=== PATIENT | female | born 1955 | race Caucasian/White ===

== ENCOUNTER → 2017-09-17 12:54 | Outpatient (CLI) | payer MEDICARE, OTHER, SELFPAY ==
--- NOTE | 2017-09-17 13:03 | MR_ITS ---
MR lower leg RT wo con HISTORY: Right calf pain. Popping noise from the right calf with pain ITS.REASON: STRAINED MUSCLE ORDERING PHYSICIAN: Hua Romero PATIENT AGE: 62 years Comparison: None TECHNIQUE: Standard multiplanar multiecho sequences are performed without contrast. FINDINGS: There is no evidence of abnormal signal intensity within the muscles of the right calf that would indicate a muscle tear or strain. No evidence of hematoma. Unremarkable bone marrow signal intensity. No evidence of fracture. Incidental note is made of bilateral knee joint effusions and a left-sided Hoff's cyst measuring approximately 3.5 cm. IMPRESSION: 1. No evidence of muscle tear, strain, or hematoma 2. Bilateral knee joint effusions with left-sided Hoff cyst
== END ==
PROVIDERS: Family Provider Family Medicine; PCP Nurse Practitioner Family; Visit Provider Orthopaedic Surgery Adult Reconstructive Orthopaedic Surgery
DX: S86.111A Strain of other muscle(s) and tendon(s) of posterior muscle group at lower leg level, right leg, initial encounter (principal)
CPT/HCPCS: 73718

== ENCOUNTER 2017-10-14 10:00 | Outpatient (RCR) | payer MEDICARE, OTHER, SELFPAY | END 2017-10-27 13:31 | disposition home or self-care (01) | LOC: PT 10:00 | PROVIDERS: Family Provider Family Medicine; PCP Nurse Practitioner Family; Visit Provider Orthopaedic Surgery Adult Reconstructive Orthopaedic Surgery | DX: M17.0 Bilateral primary osteoarthritis of knee (principal) | CPT/HCPCS: 97110; 97163 ==

== ENCOUNTER → 2020-05-05 15:58 | Outpatient (CLI) | payer MEDICARE, OTHER, SELFPAY | PROVIDERS: PCP Family Medicine; Visit Provider Family Medicine | DX: Z20.822 Contact with and (suspected) exposure to COVID-19 (principal); U07.1 COVID-19 | CPT/HCPCS: U0003 ==

== ENCOUNTER → 2021-06-17 15:07 | Outpatient (CLI) | payer MEDICARE, OTHER, SELFPAY ==
--- NOTE | 2021-06-17 15:07 | MM_ITS ---
PROCEDURE INFORMATION: Exam: MG Bilateral Screening 3D Mammography Exam date and time: 06/17/2021 3:07 PM Age: 66 years old Clinical indication: Encounter for screening mammogram for malignant neoplasm of breast TECHNIQUE: Imaging protocol: Bilateral Screening tomosynthesis and 2D mammography including computer-aided detection (CAD) when performed. COMPARISON: MG DMSB DIG MAMM-SCREEN FARZANEH W/CAD 11/28/2016 9:19 AM FINDINGS: MAMMOGRAPHY: Breast composition: The breast tissue is composed of scattered areas of fibroglandular density. Mass: None. Architectural distortion: None. Calcifications: No suspicious calcifications. Asymmetric density: None. Skin thickening: None. Axillary adenopathy: None. IMPRESSION: No mammographic evidence of malignancy. Annual screening is recommended unless otherwise clinically indicated. ASSESSMENT: BI-RADS Category 1: Negative
== END ==
PROVIDERS: PCP Family Medicine; Visit Provider Family Medicine
DX: Z12.31 Encounter for screening mammogram for malignant neoplasm of breast (principal)
CPT/HCPCS: 77063; 77067

== ENCOUNTER → 2022-03-13 10:51 | Outpatient (CLI) | payer MEDICARE, OTHER, SELFPAY ==
[2022-03-13 12:03] LABS: Basophils # 0.1 K/mm3 (0-0.2); Eosinophils # 0.2 K/mm3 (0.0-0.4); Eosinophils % 2.3 % (0.1-12.0); Hematocrit 42.9 % (37.0-47.0); Hemoglobin 13.6 g/dL (12.2-16.2); Lymphocytes # 1.7 K/mm3 (0.7-4.5); Lymphocytes % 23.8 % (10-50); Mean Corpuscular HGB Conc 31.7 g/dL (31.8-35.4); Mean Corpuscular Hemoglobin 28.1 pg (27.0-31.2); Mean Corpuscular Volume 88.8 fl (81-99); Mean Platelet Volume 9.7 fl (7.4-10.4); Monocytes # 0.3 K/mm3 (0.1-1.0); Monocytes % 4.8 % (1.7-9.3); Neutrophils # 4.9 K/mm3 (1.8-7.8); Neutrophils % 68.1 % (37.0-80.0); Platelet Count 254 K/mm3 (142-424); Red Blood Count 4.83 M/mm3 (4.20-5.40); Red Cell Distribution Width 14.7 % (11.5-17.5); White Blood Count 7.1 K/mm3 (4.8-10.8)
[2022-03-13 12:39] LABS: Alanine Aminotransferase 21 U/L (12-78); Albumin Level 4.4 g/dl (3.5-5.0); Alkaline Phosphatase 92 U/L (38-126); Anion Gap 15.9 mEq/L (5-15); Aspartate Amino Transferase 22 U/L (14-36); Bilirubin,Total 0.5 mg/dl (0.2-1.3); Blood Urea Nitrogen 19 mg/dl (7-17); Calcium 9.7 mg/dl (8.4-10.2); Carbon Dioxide 33 mmol/L (22.0-30.0); Chloride 97 mmol/L (98-107); Estimated Glomerular Filt Rate 55 ml/min (>60); GFR (African American) 67 ML/MIN (>60); Globulin 2.2 g/dL (1.3-3.2); Glucose 153 mg/dl (74-100); Potassium 4.9 mmoL/L (3.5-5.1); Sodium 141 mmol/L (136-145); Total Protein,Serum 6.6 g/dl (6.3-8.2)
[2022-03-13 13:49] LABS: Vitamin B12 915 pg/mL (239-931)
== END ==
PROVIDERS: PCP Family Medicine; Visit Provider Nurse Practitioner Family
DX: D32.9 Benign neoplasm of meninges, unspecified (principal); H49.00 Third [oculomotor] nerve palsy, unspecified eye; H49.10 Fourth [trochlear] nerve palsy, unspecified eye; M79.7 Fibromyalgia; R25.1 Tremor, unspecified
CPT/HCPCS: 36415; 80053; 82607; 82746; 84443; 85025

== ENCOUNTER → 2022-03-18 08:34 | Outpatient (CLI) | payer MEDICARE, OTHER, SELFPAY ==
--- NOTE | 2022-03-18 08:35 | CT_ITS ---
FINAL REPORT TECHNIQUE: Multiple axial CT sections were performed from the foramen magnum to the vertex. Coronal reformatted images were also obtained. Precontrast and postcontrast injection images were obtained. This study was performed with technique to keep radiation doses as low as reasonably achievable, (ALARA). Individualized dose reduction techniques using automated exposure control or adjustment of mA and/or kV according to the patient size were employed. CLINICAL HISTORY: tremors in left arm, hx meningomas FINDINGS: The ventricles are normal in size. There is no evidence of hemorrhage. No masses are identified. No extra-axial fluid collection is seen. The sinuses are normal. No osseous abnormality is seen on the bone window images. There are postoperative changes from right sided craniotomy. Postcontrast images demonstrate no abnormal enhancement. IMPRESSION: Unremarkable CT of the head with and without contrast. Reviewed, Interpreted and Dictated by Avni Aguirre III, MD Transcribed by Marissa Yarbrough Authenticated and [facility]
== END ==
PROVIDERS: PCP Family Medicine; Visit Provider Nurse Practitioner Family
DX: D32.9 Benign neoplasm of meninges, unspecified (principal); H49.00 Third [oculomotor] nerve palsy, unspecified eye; H49.10 Fourth [trochlear] nerve palsy, unspecified eye
CPT/HCPCS: 70470; Q9967

== ENCOUNTER → 2022-03-24 12:41 | Outpatient (CLI) | payer MEDICARE, OTHER, SELFPAY ==
[2022-03-24 14:00] LABS: Hemoglobin A1C 6.3 % (4.0-6.0)
== END ==
PROVIDERS: PCP Family Medicine; Visit Provider Nurse Practitioner Family
DX: R73.9 Hyperglycemia, unspecified (principal)
CPT/HCPCS: 36415; 83036

== ENCOUNTER 2023-05-19 13:09 | Outpatient (CLI) | payer MEDICARE, OTHER, SELFPAY ==
--- NOTE | 2023-05-19 13:17 | MM_ITS ---
PROCEDURE INFORMATION: Exam: MG Bilateral Screening 3D Mammography Exam date and time: 05/19/2023 1:05 PM Age: 68 years old Clinical indication: Screening mammogram TECHNIQUE: Imaging protocol: Bilateral Screening tomosynthesis and 2D mammography including computer-aided detection (CAD) when performed. COMPARISON: 1. MG MM DIG SCREENING MAMM BI W/CAD 06/17/2021 3:23 PM 2. MG DMSB DIG MAMM-SCREEN FARZANEH W/CAD 11/28/2016 9:19 AM 3. MG DMSB DIG MAMM-SCREEN FARZANEH 11/10/2013 3:55 PM 4. MG BC SCREENING MAMMOGRAM DIGITAL 05/23/2010 2:29 PM FINDINGS: MAMMOGRAPHY: Breast composition: There are scattered areas of fibroglandular density. Mass: Stable benign-appearing subcentimeter nodules are present in the right breast. No new or morphologically suspicious nodule has developed to suggest malignancy. Architectural distortion: No new or suspicious architectural distortion. Calcifications: No new or suspicious calcifications are present Asymmetric density: No new or suspicious asymmetric density is present Skin thickening: None. Axillary adenopathy: None. IMPRESSION: No mammographic evidence of malignancy. Recommend annual screening mammography unless otherwise clinically indicated. ASSESSMENT: BI-RADS category 2: Benign
== END 2023-05-19 23:59 ==
LOC: RAD 13:10
PROVIDERS: PCP Family Medicine; Visit Provider Family Medicine
DX: Z12.31 Encounter for screening mammogram for malignant neoplasm of breast (principal)
CPT/HCPCS: 77063; 77067

== ENCOUNTER 2023-05-22 22:14 | Emergency (ER) | payer MEDICARE, OTHER, SELFPAY ==
[2023-05-22 22:14] VITALS: BP 120/78; PULSE 78; RESP 17; TEMP 36.6; O2SAT 93; BMI 38.2
--- NOTE | 2023-05-22 22:15 | PC.NURSE ---
Called Poison control, spoke with Linda Mejia stated symptomatic care, observe 6 hors from time of consuming. aware
--- NOTE | 2023-05-22 22:24 | ED_ITS ---
Discharge Plan Disposition Patient Disposition: Home, Self-Care Condition: Good Prescriptions Prescriptions: No Action gabapentin 400 mg capsule 400 mg PO BID Patient Comments: TAKE 1 CAPSULE BY MOUTH TWICE DAILY duloxetine 30 mg capsule,delayed release(DR/EC) 30 mg PO DAILY Patient Comments: TAKE 1 CAPSULE BY MOUTH EVERY DAY aspirin 81 mg tablet,delayed release (DR/EC) 81 mg PO DAILY docusate sodium 100 mg capsule 100 mg PO DAILY meloxicam 7.5 mg tablet 7.5 mg PO DAILY Patient Comments: TAKE 1 TABLET BY MOUTH DAILY NEEDED losartan 25 mg tablet 25 mg PO DAILY Patient Comments: TAKE 1 TABLET BY MOUTH EVERY DAY furosemide 20 mg tablet 20 mg PO DAILY Patient Comments: TAKE 1 TABLET BY MOUTH EVERY DAY potassium citrate 99 mg capsule 99 mg PO .COMPLEX Rx Instructions: 99 mg orally daily; spironolactone 25 mg tablet 12.5 mg PO .COMPLEX Rx Instructions: 12.5 mg orally m,w,f; mecobalamin (vitamin B12) 1,000 mcg tablet,chewable 1,000 mcg PO DAILY cholecalciferol (vitamin D3) 125 mcg (5,000 unit) capsule 125 mcg PO DAILY ascorbate calcium (vitamin C) 500 mg tablet 1,000 mg PO DAILY carvedilol 12.5 mg tablet 12.5 mg PO BID Qty: 60 5RF Linzess 145 mcg capsule 145 mcg PO DAILY biotin 2,500 mcg capsule 5,000 mcg PO DAILY omega 8-fof-ksw-fish oil [Fish Oil] 300-1,000 mg capsule 1 cap PO DAILY Referrals Follow up/Referrals: Sonia Barlow [Primary Care Provider] - See instructions Activity Restrictions/Add. Instructions Additional Instructions/Restrictions: You were evaluated in the emergency department today. Please refrain from drug use. Follow-up with your primary care provider. Return to the emergency department for new or worsening symptoms. Clinical Impressions Clinical Impression: Accidental marijuana overdose Discharge ED Provider: Aylin Villalobos General Adult HPI <Aylin Villalobos DO - Last Filed: 05/22/23 23:02> General Chief complaint: Overdose Stated complaint: side effect from delta 8 gummy Time Seen by Provider: 05/22/23 22:14 Mode of Arrival: EMS Source of Information: Patient and EMS Limitations: Altered Mental Status Description of Symptoms (Recalled from ER Triage Doc. by RN): EMS reports they were called by family because patient had taken a 300mg delta 8 gummy at approximately 6pm and has progressively gotten more lethargic. Family reported that patient was playing cards and dropping them, sliding out of her chair. EMS states that patient is arousable but appears very drowsy, vitals stable en route, FSBG 122. History of Present Illness HPI narrative: This patient is a 68-year-old female with a history of KAMLA and hypertension presenting to the emergency department for evaluation with concern for altered mental status after taking a delta 8 gummy. She took more than one 300 mg gummy, which she had not taken previously. She progressively became more and more somnolent. She consumed these around 6:00 PM. They were trying to play cards at home, and she kept dropping them and sliding out of her chair. They called EMS for evaluation given that the patient was so drowsy. EMS notes that the patient had reassuring vital signs and route with no focal neurologic deficits. Fingerstick was normal. They provide the bag of Gummies which the patient consumed. Patient is currently answering questions appropriately and following commands with no focal neurologic deficits. She states that those things she took were powerful. No other concerns noted at this time. Related Data Home Medications Medication Instructions Recorded Confirmed aspirin 81 mg tablet,delayed 81 mg PO DAILY 03/13/22 05/22/23 release cholecalciferol (vitamin D3) 125 125 mcg PO DAILY 03/13/22 05/22/23 mcg (5,000 unit) capsule docusate sodium 100 mg capsule 100 mg PO DAILY 03/13/22 05/22/23 duloxetine 30 mg capsule,delayed 30 mg PO DAILY 03/13/22 05/22/23 release furosemide 20 mg tablet 20 mg PO DAILY 03/13/22 05/22/23 gabapentin 400 mg capsule 400 mg PO BID 03/13/22 05/22/23 losartan 25 mg tablet 25 mg PO DAILY 03/13/22 05/22/23 mecobalamin (vitamin B12) 1,000 1,000 mcg PO DAILY 03/13/22 05/22/23 mcg chewable tablet meloxicam 7.5 mg tablet 7.5 mg PO DAILY 03/13/22 05/22/23 potassium citrate 99 mg capsule 99 mg PO .COMPLEX 03/13/22 05/22/23 spironolactone 25 mg tablet 12.5 mg PO .COMPLEX 03/13/22 05/22/23 ascorbate calcium (vitamin C) 500 1,000 mg PO DAILY 12/10/22 05/22/23 mg tablet biotin 2,500 mcg capsule 5,000 mcg PO DAILY 12/10/22 05/22/23 linaclotide 145 mcg capsule 145 mcg PO DAILY 12/10/22 05/22/23 (Linzess) omega 2-fwa-osm-fish oil 300 1 cap PO DAILY 12/10/22 05/22/23 mg-1,000 mg capsule (Fish Oil) Previous Rx's Medication Instructions Recorded carvedilol 12.5 mg tablet 12.5 mg PO BID propranolol intol, 06/11/22 no tremor improvement #60 tabs Allergies Allergy/AdvReac Type Severity Reaction Status Date / Time No Known Drug Allergies Allergy Verified 12/10/22 13:08 [facility] <Aylin Villalobos DO - Last Filed: 05/22/23 23:02> [facility] Disclaimer: The information contained in this section may have been updated after the patient was seen, as this information can be updated by other users. Medical History KAMLA on CPAP Tremor Surgical History History of cholecystectomy History of colonoscopy History of nasal septoplasty History of total hysterectomy Family History Other Cancer Coronary artery disease Diabetes Heart attack Social History Smoking Status: Unknown if ever smoked alcohol intake: current substance use type: denies use current occupational status: retired Travel in the last 8 weeks: None household members: spouse housing: house marital status: <Aylin Villalobos DO - Last Filed: 05/22/23 23:02> ROS Obtained: Yes All systems reviewed & no additional complaints except as documented Physical Exam <Aylin Villalobos DO - Last Filed: 05/22/23 23:02> General General appearance: in no apparent distress and obese Comment: Somnolent but arouses to voice Head Head exam: atraumatic and normocephalic Eye Eye exam: Present normal appearance, PERRL and EOMI ENT ENT exam: Present normal exam, normal oropharynx, mucous membranes moist and normal external ear exam Neck Neck exam: Present normal inspection, full ROM and trachea midline; Absent tenderness Chest Chest inspection: Present normal inspection and symmetric chest wall rise; Absent tenderness Respiratory Respiratory exam: Present normal lung sounds bilaterally; Absent respiratory distress, wheezes, stridor or accessory muscle use Cardiovascular Cardiovascular exam: Present regular rate and normal rhythm Abdominal Exam Abdominal exam: Present soft; Absent distention, tenderness or guarding Extremities Exam Extremities exam: Present normal inspection, full ROM and normal capillary refill; Absent tenderness or edema Back Exam Back exam: Present normal inspection and full ROM; Absent tenderness Neurological Exam Neurological exam: Present oriented X3, CN II-XII intact and normal gait; Absent motor sensory deficit Expanded Neurological Exam Patient oriented to: Present person, place and time Speech: Present fluid speech Cranial nerves: Normal: EOM function (II, III, IV, ), facial sensation (V), facial palsy (VII), spinal accessory function (XI) and tongue deviation (XII) Motor strength - LUE: 5/5 Motor strength - RUE: 5/5 Motor strength - LLE: 5/5 Motor strength - RLE: 5/5 Sensory exam upper extremity: Normal: light touch Sensory exam lower extremity: Normal: light touch Coma scale eye opening: To voice Coma scale motor response: Obeys commands Coma scale verbal response: Oriented Coma scale total: 14 Psychiatric Psychiatric exam: Present normal affect and normal mood Skin Skin exam: Present warm and dry <Aníbal Wall MD - Last Filed: 05/23/23 00:54> Expanded Neurological Exam Coma scale total: 14 Medical Decision Making <Aylin Villalobos DO - Last Filed: 05/22/23 23:02> Medical Records Medical records reviewed: Yes I reviewed the patient's medical records. Juan Carlos Inquiry Pt receiving controlled substance: No Vital Signs: 05/22/23 22:14 05/22/23 22:30 05/22/23 23:00 Temperature 97.8 F Temperature Source Oral Pulse Rate 71 Pulse Rate [Left Radial] 78 Respiratory Rate 17 25 H 17 Blood Pressure 119/77 127/81 Blood Pressure [Right Arm] 120/78 Blood Pressure Mean Blood Pressure Mean [Right Arm] 92 Blood Pressure Source [Right Arm] Automatic Cuff Blood Pressure Position [Right Arm] Sitting 02 Sat by Pulse Oximetry 93 L 95 95 Oxygen Delivery Method Room Air Room Air Room Air 05/22/23 23:31 05/23/23 00:10 05/23/23 00:31 Temperature Temperature Source Pulse Rate 73 75 73 Pulse Rate [Left Radial] Respiratory Rate 21 20 20 Blood Pressure 125/98 H 97/54 L 153/80 H Blood Pressure [Right Arm] Blood Pressure Mean 104 68 104 Blood Pressure Mean [Right Arm] Blood Pressure Source [Right Arm] Blood Pressure Position [Right Arm] 02 Sat by Pulse Oximetry 95 94 L 97 Oxygen Delivery Method Lab Data Lab results reviewed: Yes I reviewed the patient's lab results. ECG Data Tracing #1: I reviewed this ECG and interpreted as documented below: Normal sinus rhythm with a ventricular rate of [address] changes concerning for ischemia. ECG initial impression date: 05/22/23 ECG initial impression time: 22:30 Medical Decision Narrative: In summary, this patient is a 68-year-old female presenting to the Emergency Department for evaluation of her mental status after consuming a delta 8 gummy. Differential diagnoses considered include but are not limited to intoxication, polysubstance ingestion, hypoglycemia, dysrhythmia. Ruling out the most morbid conditions drove assessment. It should be noted patient's history includes hypertension which may or may not be at goal therapy. This complicates all aspects of care by increasing patient's risk for morbidity. On exam, the patient is somnolent but arouses easily to voice. She follows commands and has no focal neurologic deficits. Vitals are reassuring. Fingerstick blood glucose is 117. EKG was obtained and demonstrated no acutely concerning abnormalities. At this time, patient was placed in ED observation at 2300 for continued monitoring and reassessment. Poison control was contacted and advised monitoring until she returns to her baseline. Patient care signed to the oncoming provider, Dr. Wall. <Aníbal Wall MD - Last Filed: 05/23/23 00:54> Vital Signs: 05/22/23 22:14 05/22/23 22:30 05/22/23 23:00 Temperature 97.8 F Temperature Source Oral Pulse Rate 71 Pulse Rate [Left Radial] 78 Respiratory Rate 17 25 H 17 Blood Pressure 119/77 127/81 Blood Pressure [Right Arm] 120/78 Blood Pressure Mean Blood Pressure Mean [Right Arm] 92 Blood Pressure Source [Right Arm] Automatic Cuff Blood Pressure Position [Right Arm] Sitting 02 Sat by Pulse Oximetry 93 L 95 95 Oxygen Delivery Method Room Air Room Air Room Air 05/22/23 23:31 05/23/23 00:10 05/23/23 00:31 Temperature Temperature Source Pulse Rate 73 75 73 Pulse Rate [Left Radial] Respiratory Rate 21 20 20 Blood Pressure 125/98 H 97/54 L 153/80 H Blood Pressure [Right Arm] Blood Pressure Mean 104 68 104 Blood Pressure Mean [Right Arm] Blood Pressure Source [Right Arm] Blood Pressure Position [Right Arm] 02 Sat by Pulse Oximetry 95 94 L 97 Oxygen Delivery Method Medical Decision Narrative: In summary, this patient is a 68-year-old female presenting to the Emergency Department for evaluation of her mental status after consuming a delta 8 gummy. Differential diagnoses considered include but are not limited to intoxication, polysubstance ingestion, hypoglycemia, dysrhythmia. Ruling out the most morbid conditions drove assessment. It should be noted patient's history includes hypertension which may or may not be at goal therapy. This complicates all aspects of care by increasing patient's risk for morbidity. On exam, the patient is somnolent but arouses easily to voice. She follows commands and has no focal neurologic deficits. Vitals are reassuring. Fingerstick blood glucose is 117. EKG was obtained and demonstrated no acutely concerning abnormalities. At this time, patient was placed in ED observation at 2300 for continued monitoring and reassessment. Poison control was contacted and advised monitoring until she returns to her baseline. Patient care signed to the oncoming provider, Dr. Wall. On reassessment, and 51 on 05/23, patient was more awake and interactive. Alert and oriented on exam. Tolerating p.o. intake. Ambulatory with assistance. Extensive discussion with family. Given her symptomatic improvement and that she has completed the appropriate observation time since ingestion, patient was deemed appropriate for discharge with outpatient follow- up and observation status was discontinued. Total time in observation 1 hour 52 minutes. I had a [id number] meeting with the patient and family regarding discharge instructions. Total time involved in discharging the patient was less than 30 minutes. Critical Care <Aylin Villalobos, DO - Last Filed: 05/22/23 23:02> Critical Care Time Critical Care Time: No
--- NOTE | 2023-05-22 22:27 | ECG_ITS ---
APPROVED REPORT Exam: Resting ECG HR:74 bpm ECG Measurements Heart Rate 74 AXES [place] 175 P 52 QRSd 88 QRS -9 QT 397 T 143 QTc 425 Conclusion SINUS RHYTHM LOW QRS VOLTAGE IN PRECORDIAL LEADS [QRS DEFLECTION < 1.0 mV IN CHEST LEADS] NONSPECIFIC ST & T-WAVE ABNORMALITY ABNORMAL ECG UNCONFIRMED REPORT Electronically signed by : Jonatan Mullins MD 05/23/2023 13:37:56
[2023-05-22 22:30] VITALS: BP 119/77; RESP 25; O2SAT 95
--- NOTE | 2023-05-22 22:36 | PC.NURSE ---
pt given ice chips and at bedside
[2023-05-22 23:00] VITALS: BP 127/81; PULSE 71; RESP 17; O2SAT 95
--- NOTE | 2023-05-22 23:13 | PC.NURSE ---
Dr. Villalobos @ bedside speaking to family
[2023-05-22 23:31] VITALS: BP 125/98; PULSE 73; RESP 21; O2SAT 95
[2023-05-23 00:10] VITALS: BP 97/54; PULSE 75; RESP 20; O2SAT 94
[2023-05-23 00:31] VITALS: BP 153/80; PULSE 73; RESP 20; O2SAT 97
--- NOTE | 2023-05-23 00:44 | PC.NURSE ---
Patient attempted to ambulate in the hallway. Patient is more responsive and would like to go home and rest. Patient required assist x 2 and appears slightly unsteady. Spoke with family at bedside to ensure safety at home. Patient's reports that they have a wheelchair available at home to assist them.
[2023-05-23 00:51] VITALS: BP 153/80; PULSE 78; RESP 16; TEMP 36.7; O2SAT 97
== END 2023-05-23 00:55 | disposition home or self-care (01) ==
PROVIDERS: Emergency Provider Emergency Medicine; PCP Family Medicine
DX: R41.82 Altered mental status, unspecified (principal); T40.711A Poisoning by cannabis, accidental (unintentional), initial encounter; G47.33 Obstructive sleep apnea (adult) (pediatric); I10 Essential (primary) hypertension
CPT/HCPCS: 93005; 99285

== ENCOUNTER 2024-07-08 13:02 | Outpatient (CLI) | payer MEDICARE, OTHER, SELFPAY ==
--- NOTE | 2024-07-08 | MM_ITS ---
PROCEDURE INFORMATION: Exam: US Right Breast, Complete MG Bilateral Diagnostic Breast Tomosynthesis Exam date and time: 07/08/2024 1:21 PM Age: 69 years old Clinical indication: Right breast pain TECHNIQUE: Imaging protocol: Complete ultrasound of all four quadrants of the right breast and the retroareolar regions, including ultrasound of the axilla when performed. Bilateral Diagnostic tomosynthesis and 2D mammography including computer-aided detection (CAD) when performed. Unilateral or bilateral exam. COMPARISON: 1. MG MM DIG SCREENING MAMM BI W/CAD 05/19/2023 1:05 PM 2. MG MM DIG SCREENING MAMM BI W/CAD 06/17/2021 3:23 PM FINDINGS: MAMMOGRAPHY: Breast composition: There are scattered areas of fibroglandular density. Breast mammogram findings: There is no stellate mass, architectural distortion or suspicious microcalcifications in either breast to suggest malignancy. Stable mammographically detected 1.7 cm ovoid mass in the anterior right lateral breast. No skin thickening or axillary adenopathy. ULTRASOUND: Breast ultrasound findings: Sonographic images of the right breast including the retroareolar region, all 4 quadrants and the axilla demonstrates a heterogeneous solid mass in the 9 o'clock axis 3 cm from the nipple. It measures 1.2 x 0.9 x 1.4 cm in dimension and corresponds to stable ovoid mass seen on mammography dating back to 2021. The finding likely represents benign fat necrosis. No architectural distortion or acoustical shadowing. No skin thickening or axillary adenopathy. IMPRESSION: No mammographic or sonographic evidence of malignancy. Annual bilateral mammographic screening is recommended unless otherwise clinically indicated. ASSESSMENT: BI-RADS Category 2: Benign.
== END 2024-07-08 23:59 | disposition home or self-care (01) ==
LOC: RAD 13:03
PROVIDERS: PCP Family Medicine; Visit Provider Family Medicine
DX: R92.8 Other abnormal and inconclusive findings on diagnostic imaging of breast (principal); N64.4 Mastodynia
CPT/HCPCS: 76641; 77062; 77066; G0279

== ENCOUNTER 2024-12-06 17:09 | Emergency (ER) | payer MEDICARE, OTHER, SELFPAY ==
--- OUTSIDE RECORDS SUMMARY | 2024-12-06 18:37 | XMS_ITS | Clinical Summary ---
Author Organization Healthcare Address [address] [place] [address] Care Team Providers Care Hazardous Materials Handler Name Role Phone Ary Pratt MD Primary Care Provider [phone] Swapnil Garcia MD Unavailable [phone] Allergies Active Allergy Reactions Criticality Noted Date Comments Amoxicillin Diarrhea Low 06/07/2019 Medications DULoxetine (Cymbalta) [address] capsule 09/03/2021 Active cyclobenzaprine (Flexeril) 10 MG tablet 06/28/2014 Active furosemide (Lasix) 20 MG tablet 07/15/2021 Active gabapentin (Neurontin) 400 MG capsule 09/03/2021 Active losartan (Cozaar) 25 MG tablet 07/15/2021 Active meloxicam (Mobic) 7.5 MG tablet 09/03/2021 Active propranolol (Inderal) 40 MG tablet Take 80 mg by mouth 2 (two) times a day. 05/07/2022 Active spironolactone (Aldactone) 25 MG tablet 05/06/2022 Active aspirin 81 MG EC tablet Take 81 mg by mouth 1 (one) time each day. Active cyanocobalamin (cyancobalamin) 500 MCG tablet Take 500 mcg by mouth 1 (one) time each day. Active Active Problems Problem Noted Date Diagnosed Date Meningioma 05/21/2022 Social History Tobacco Use Types Packs/Day Years Used Date Smoking Tobacco: Never Smokeless Tobacco: Never Tobacco Cessation:Counseling Given: Not Answered Alcohol Use Standard Drinks/Week Comments Never 0 (1 standard drink = 0.6 oz pur e alcohol) Comments Unknown Sex and Gender Information Value Date Recorded Sex Assigned at Not on file Legal Sex Female 7:32 PM EDT Gender Identity Not on file Sexual Orientation Not on file Last Filed Vital Signs Vital Sign Reading Time Taken Comments Blood Pressure 102/80 05/22/2022 9:15 AM EST Pulse - - Temperature - - Respiratory Rate - - Oxygen Saturation - - Inhaled Oxygen Concentration - - Weight 103 kg (227 lb) 05/22/2022 9:15 AM EST Height 165.1 cm (5' 5 ) 05/22/2022 9:15 AM EST Body Mass Index 37.77 05/22/2022 9:15 AM EST Plan of Treatment Health Maintenance Due Date Last Done Comments [facility]-Bone Density Scan 1956 [facility]-Depression Screening 1956 [facility]-Infant/Child/Adol SDOH Screenings 1956 [facility]- SDOH Screenings 1974 [facility]-Adult SDOH Screenings 1974 [facility]-DTaP,Tdap,and Td Vaccine s (1 - Tdap) 1975 CT Colonography 2001 Colonoscopy 2001 FIT-DNA 2001 FIT 2001 FOBT 2001 Sigmoidoscopy 2001 [facility]-Colorectal Cancer Screening 2001 [facility]-Pneumococcal Vaccine: 50 + Years (1 of 1 - PCV) 2006 [facility]-Zoster Vaccines (2 of 3) 08/05/2016 06/10/2016 [id number] Vaccine (3 - season) 2023 04/23/2021, 09/06/2020 [facility]-Influenza Vaccine (#1) 12/26/202401/09, 02/02/2018, 06/10/2016 [facility]-RSV Vaccine: 60+ Years o r (1 - 1-dose 75+ series) 2031 HPV Vaccines Aged Out No longer eligi ble based on patient's age to complete this topic [facility]-HIB Vaccines Aged Out No longer e ligible based on patient's age to complete this topic [facility]-Hepatitis A Vaccines Aged Out No longer eligible based on patient's age to complete this topic [facility]-IPV Vaccines Aged Out No longer e ligible based on patient's age to complete this topic [facility]-Rotavirus Vaccines Aged Out No lo nger eligible based on patient's age to complete this topic Insurance MEDICARE [facility] Care Teams Hazardous Materials Handler Relationship Specialty Start Date End Date Ary Pratt MD [address] [place] [address] PCP - General 09/07/20 Swapnil Garcia MD [address] [facility] [address] [place] [id number] Surgeon Neurosurgery 05/22/22
--- OUTSIDE RECORDS SUMMARY | 2024-12-06 18:37 | XMS_ITS | Encounter Summary ---
Author Organization [facility] yste Address [address] [place] [address] Care Team Providers Care Laster Hand Name Role Phone Sonia Barlow Primary Care Provider [phone] Reason for Visit * Reason Comments Med Refill Encounter Details Date Type Department Care Team (Late st Contact Info) Description 11/07/2023 Refill [facility] [address] [address] Tierra Hurtado APRN [address] [place] [address] Med Refill Social History Tobacco Use Types Packs/Day Years Used Date Smoking Tobacco: Never Passive Smoke Exposure: Never Smokeless Tobacco: Never Alcohol Use Standard Drinks/Week Comments Not Currently 0 (1 standard drink = 0.6 oz pur e alcohol) Comments Unknown Sex and Gender Information Value Date Recorded Sex Assigned at Not on file Legal Sex Female 11:04 AM EDT Gender Identity Not on file Sexual Orientation Not on file documented as of this encounter Plan of Treatment Upcoming Encounters Date Type Department Care Team (Late st Contact Info) Description 02/20/2025 1:30 PM EDT Ancillary Procedure [facility] [address] [address] 02/20/2025 2:15 PM EDT Office Visit [facility] [address] [address] [address] Romero MD [address] [place] [address] documented as of this encounter Visit Diagnoses Not on filedocumented in this encounter Care Teams Laster Hand Relationship Specialty Start Date End Date Sonia Barlow DO [address] [place] [address] PCP - General Family Medicine 05/08/23 documented as of this encounter
--- OUTSIDE RECORDS SUMMARY | 2024-12-06 18:38 | XMS_ITS | Encounter Summary ---
Author Organization [facility] Address [address] [place] [address] Care Team Providers Care Automotive Finance Manager Name Role Phone Ary Pratt MD Primary Care Provider [phone] Swapnil Garcia MD Unavailable [phone] Reason for Referral * Consultation (Routine) - Closed Specialty Diagnoses / Procedures Referred By Contac t Referred To Contact Neurosurgery Diagnoses Benign meningioma (CMS/HCC) Katelin Whitten APRN [address] [place] [address] Phone: tel: fax: Referral ID Status Reason Start Date Expiration Date V isits Requested Visits Authorized [id number] Closed Specialty Services Required 05/05/2022 11/04/2023 1 1 Encounter Details Date Type Department Care Team (Late st Contact Info) Description 05/05/2022 [facility] [address] [place] [address] Katelin Whitten APRN [address] [place] [address] Benign meningioma (CMS/HCC) (Primary Dx) Social History Tobacco Use Types Packs/Day Years Used Date Smoking Tobacco: Never Comments Unknown Sex and Gender Information Value Date Recorded Sex Assigned at Not on file Legal Sex Female 7:32 PM EDT Gender Identity Not on file Sexual Orientation Not on file documented as of this encounter Plan of Treatment Scheduled Referrals Name Type Priority Associated Diagnoses Order Schedule Ambulatory Referral to Neurosurgery Outpatient Referral Routine Benign meningioma (CMS/HCC) Expected: 05/05/2022 (Approximate), Expires: 11/03/2023 documented as of this encounter Visit Diagnoses Diagnosis Benign meningioma (CMS/HCC)- Primary Neoplasm of uncertain behavior of meninges documented in this encounter Care Teams Automotive Finance Manager Relationship Specialty Start Date End Date Ary Pratt MD [address] [place] [address] PCP - General 09/07/20 Swapnil Garcia MD [address] [facility] [address] [place] [id number] Surgeon Neurosurgery 05/22/22 documented as of this encounter
--- OUTSIDE RECORDS SUMMARY | 2024-12-06 18:38 | XMS_ITS | Encounter Summary ---
Author Organization Healthcare Address [address] [place] [address] Care Team Providers Care Outpatient Phlebotomist Name Role Phone Ary Pratt MD Primary Care Provider [phone] Swapnil Garcia MD Unavailable [phone] Encounter Details Date Type Department Care Team (Late st Contact Info) Description 03/24/2022 [facility] [address] [place] [address] Katelin Whitten, CONTAINER FINISHING INSPECTOR [address] [place] [address] Benign neoplasm of meninges (CMS/HCC) (Primary Dx) Social History Tobacco Use Types Packs/Day Years Used Date Smoking Tobacco: Never Comments Unknown Sex and Gender Information Value Date Recorded Sex Assigned at Not on file Legal Sex Female 7:32 PM EDT Gender Identity Not on file Sexual Orientation Not on file documented as of this encounter Plan of Treatment Not on file documented as of this encounter Visit Diagnoses Diagnosis Benign neoplasm of meninges- Primary Benign neoplasm of cerebral meninges documented in this encounter Care Teams Outpatient Phlebotomist Relationship Specialty Start Date End Date Ary Pratt MD [address] [place] [address] PCP - General 09/07/20 Swapnil Garcia MD [address] [place] [id number] Surgeon Neurosurgery 05/22/22 documented as of this encounter
--- OUTSIDE RECORDS SUMMARY | 2024-12-06 18:38 | XMS_ITS | Clinical Summary ---
Author Organization [facility] Address [address] [place] [address] Care Team Providers Care Game Warden Name Role Phone Sonia Barlowgh Primary Care Provider [phone] Allergies Active Allergy Reactions Criticality Noted Date Comments Amoxicillin GI Intolerance Medium 06/07/2019 Medications cyclobenzaprine (FLEXERIL) 10 MG tablet Take 1 tablet by mouth 2 (Two) Times a Day As Needed. 04/24/2019 Active DULoxetine (CYMBALTA) 30 MG capsule Take 1 capsule by mouth Daily. 05/16/2019 Active meloxicam (MOBIC) 7.5 MG tablet Take 1 tablet by mouth Daily As Needed. 05/16/2019 Active aspirin 81 MG EC tablet Take 1 tablet by mouth Daily. Active ascorbic acid (VITAMIN C) 100 MG tablet Take 1 tablet by mouth Daily. Active gabapentin (NEURONTIN) 400 MG capsule TAKE 1 CAPSULE BY MOUTH IN THE MORNING AND 1 CAPSULE BY MOUTH BEFORE BEDTIME Active docusate sodium 100 MG capsule Take 1 capsule by mouth. Active cyanocobalamin (VITAMIN B-12) 500 MCG tablet Take 1 tablet by mouth Daily. Active Cholecalciferol 50 MCG (2000 UT) capsule Take by mouth. Active Potassium Acetate crystals 99 mg by Other route Daily. Active topiramate (TOPAMAX) 100 MG tablet Take 1 tablet by mouth Daily. 1.5 tablets q d (pt cuts in half to dose of 150) 02/19/2024 Active losartan (COZAAR) 25 MG tabletIndication s:Chronic systolic HF (heart failure),Hyperte nsion, unspecified type TAKE 1 TABLET BY MOUTH DAILY 90 tablet 08/22/2024 Active Linzess 72 MCG capsule capsule 07/13/2024 Act aminah carvedilol (COREG) 12.5 MG tabletIndication s:Chronic systolic HF (heart failure),Hyperte nsion, unspecified type Take 1 tablet by mouth 2 (Two) Times a Day. 180 tablet 1 08/23/2024 Active furosemide (LASIX) 20 MG tabletIndication s:Chronic systolic HF (heart failure),Hyperte nsion, unspecified type Take 1 tablet by mouth Daily. 90 tablet 1 08/23/2024 Active spironolactone (ALDACTONE) 25 MG tablet Take 0.5 tablet by mouth on Thursday, Thursday, and Thursday 45 tablet 3 08/23/2024 Active Active Problems Problem Noted Date Diagnosed Date Obstructive sleep apnea 05/11/2023 Assessment & Plan (02/24/2024 5:52 PM EDT): Download reviewed. Good compliance and control. Benefiting from PAP therapy and plan to continue. Orders: PAP Therapy Assessment & Plan (08/25/2023 2:01 PM EDT): She is on a DreamStation 2 replacement CPAP. Download reviewed and interpreted today. Compliance is 97%, AHI is 3.2. I discussed the recent FDA warning regarding the dream station 2 devices overheating. She does not want to replace her device at this time, she has not had any problems with it. -Continue PAP therapy at current settings. Assessment & Plan (05/11/2023 4:35 PM EST): Download reviewed and interpreted today. Compliance is 87%, AHI is 2.5. She is using a nasal mask and doing well with that. Airflow is comfortable. She denies excessive daytime sleepiness or fatigue. She is doing well on PAP therapy with good control compliance. I discussed the recent FDA warning regarding the dream station 2 devices overheating. She does not want to replace her device at this time, she has not had any problems with it. - Continue PAP therapy at current settings. Shortness of breath 05/11/2023 Assessment & Plan (08/25/2023 2:02 PM EDT): Currently stable. Nuclear stress test from 05/21/23 revealed a very small apical area of possible ischemia vs thinning artifact. Low risk study. We discussed the results in detail. We also discussed further cardiac testing including a left heart cath and coronary CTA. Patient would like to hold off on any further testing at this time. We will continue to monitor symptoms. She will let me know if she starts experiencing chest pain, worsening shortness of breath or fatigue. Assessment & Plan (05/26/2023 3:51 PM EST): Nuclear stress test from 05/21/23 revealed a very small apical area of possible ischemia vs thinning artifact. Low risk study. We discussed the results in detail. We also discussed further cardiac testing including a left heart cath and coronary CTA. Patient would like to hold off on any further testing at this time. We will continue to monitor symptoms. She will let me know if she starts experiencing chest pain, worsening shortness of breath or fatigue. - Follow-up in 3 months Assessment & Plan (05/11/2023 4:37 PM EST): Patient reports increasing shortness of breath since last office visit. EKG today now shows ST and T wave abnormality, possible inferior ischemia. Compared to EKG from last year, she now has ST and T wave abnormality. Echocardiogram from 11/06/2022 showed an LVEF of 46-50%. Her last stress test was in 2019. - Nuclear stress test for further evaluation. Patient has chronic right knee pain and is unable to walk on a treadmill. Chronic systolic HF (heart failure) 11/07/2022 Assessment & Plan (02/24/2024 5:52 PM EDT): Euvolemic and on medical therapy. Refilling medications. Follow-up in 6 months. Orders: carvedilol (COREG) 12.5 MG tablet; Take 1 tablet by mouth 2 (Two) Times a Day. furosemide (LASIX) 20 MG tablet; Take 1 tablet by mouth Daily. losartan (COZAAR) 25 MG tablet; Take 1 tablet by mouth Daily. Assessment & Plan (08/25/2023 2:01 PM EDT): Currently stable and euvolemic. - Continue carvedilol, furosemide, losartan, spironolactone. - Unable to afford Entresto in the past. We discussed the addition of Jardiance. She would like to hold off on that for now, she is working with her PCP to get Ozempic or Wegovy approved with insurance. Assessment & Plan (05/26/2023 3:48 PM EST): Currently stable and euvolemic. - Continue carvedilol, furosemide, losartan, spironolactone. - Unable to afford Entresto in the past. We discussed the addition of Jardiance. Consider adding at next office visit. Assessment & Plan (05/11/2023 4:36 PM EST): Currently stable and euvolemic. - Continue carvedilol, furosemide, losartan, spironolactone. - Unable to afford Entresto in the past. We discussed the addition of Jardiance. Consider adding at next office visit. Assessment & Plan (11/07/2022 2:40 PM EDT): Currently stable and euvolemic. - Continue carvedilol, furosemide, losartan, spironolactone. - Unable to afford Entresto in the past. We discussed the addition of Jardiance. Consider adding at next office visit. Laboratory exam ordered as p art of routine general medical examination 11/07/2022 Body mass index (BMI) 37.0-37.9, adult Hypertension 11/07/2022 Assessment & Plan (02/24/2024 5:52 PM EDT): Blood pressure is well-controlled. Refilling medications. Follow-up in 6 months. Orders: carvedilol (COREG) 12.5 MG tablet; Take 1 tablet by mouth 2 (Two) Times a Day. furosemide (LASIX) 20 MG tablet; Take 1 tablet by mouth Daily. losartan (COZAAR) 25 MG tablet; Take 1 tablet by mouth Daily. Assessment & Plan (08/25/2023 2:03 PM EDT): Hypertension is stable . Continue current treatment regimen. Dietary sodium restriction. Weight loss. Blood pressure will be reassessed at the next regular appointment Assessment & Plan (05/26/2023 3:48 PM EST): Hypertension is stable . Continue current treatment regimen. Dietary sodium restriction. Weight loss. Blood pressure will be reassessed at the next regular appointment. Assessment & Plan (11/07/2022 2:39 PM EDT): Hypertension is stable . Continue current treatment regimen. Dietary sodium restriction. Weight loss. Blood pressure will be reassessed at the next regular appointment. Social History Tobacco Use Types Packs/Day Years Used Date Smoking Tobacco: Never Passive Smoke Exposure: Never Smokeless Tobacco: Never Tobacco Cessation:Counseling Given: Yes Alcohol Use Standard Drinks/Week Comments Not Currently 0 (1 standard drink = 0.6 oz pur e alcohol) Comments Unknown Sex and Gender Information Value Date Recorded Sex Assigned at Not on file Legal Sex Female 11:04 AM EDT Gender Identity Not on file Sexual Orientation Not on file Last Filed Vital Signs Vital Sign Reading Time Taken Comments Blood Pressure 120/80 08/23/2024 1:48 PM EDT Pulse 70 08/23/2024 1:48 PM EDT Temperature - - Respiratory Rate 14 02/24/2024 1:45 PM EDT Oxygen Saturation 96% 08/23/2024 1:48 PM EDT Inhaled Oxygen Concentration - - Weight 94.8 kg (209 lb) 08/23/2024 1:48 PM EDT Height 165.1 cm (5' 5 ) 08/23/2024 1:48 PM EDT Body Mass Index 34.78 08/23/2024 1:48 PM EDT Plan of Treatment Upcoming Encounters Date Type Department Care Team (Late st Contact Info) Description 02/20/2025 1:30 PM EDT Ancillary Procedure [facility] [address] [address] 02/20/2025 2:15 PM EDT Office Visit [facility] [address] [address] [address] Romero MD [address] [place] [address] Health Maintenance Due Date Last Done Comments DXA SCAN 1956 DIABETIC EYE EXAM 1966 DIABETIC FOOT EXAM 1966 URINE MICROALBUMIN-CREATININ E RATIO (uACR) 1966 Pneumococcal Vaccine 50+ (1 of 2 - PCV) 1975 TDAP/TD VACCINES (1 - Tdap) 1975 MAMMOGRAM 1996 COLOGUARD 2001 COLON CANCER SCREENING 5 YEA R SIGMOIDOSCOPY 2001 CT COLONOGRAPHY 2001 FECAL OCCULT BLOOD TEST 2001 FIT Testing (1 year) 2001 ZOSTER VACCINE (2 of 3) 08/05/2016 06/10/2016 ANNUAL WELLNESS VISIT 06/07/2019 HEMOGLOBIN A1C 06/07/2019 10/30/2014 HEPATITIS C SCREENING 06/07/2019 COVID-19 Vaccine ( - season) 2023 INFLUENZA VACCINE 01/25/2025 01/10/2020, , 06/10/2016 COLONOSCOPY 10/22/2032 10/22/2022, 04/27/2012 COLORECTAL CANCER SCREENING 10/22/2032 Procedures Procedure Name Priority Date/Time Associated Diagnosis Comments HEMOGLOBIN A1C Routine 10/30/2014 2:00 PM EDT from Last 3 Months or Most Recently Relevant to Health Maintenance Results * (ABNORMAL) Hemoglobin A1c (10/30/2014 2:00 PM EDT) Hemoglobin A1C 6.2(H) 4.00 - 6.00 % [facility] Comment: DF by IF @ 10/30/2014 14:52 The [place] [employer] recommends maintenance of Hemoglobin A1C at 7.0% or lower. Goals for Hemoglobin A1C reduction may need to be modified if hypoglycemia is a problem. Mean Bld Glu Estim. 126 mg/dL [facility] Blood specimen (specimen) 10/30/2014 2:00 PM EDT Narrative [facility] - 10/30/2014 2:52 PM EDT Specimen Type: Blood Swapnil Jorge Jr., MD LAB BLOOD ORDERABLE S Final Result [facility] [address] [place] [address], [place] [phone] from Last 3 Months or Most Recently Relevant to Health Maintenance Insurance MEDICARE A & B Member Subscriber Plan / Payer (Ef fective 2016-Present) Name:Staci Beauchamp Member ID:[id number] Relation to Subscriber:Self Name:Staci Beauchamp Subscriber ID:[id number] Payer ID:[id number] Group ID:Not on file Type:Not on file Address: [facility] [id number] [address] Care Teams Game Warden Relationship Specialty Start Date End Date Sonia Barlow DO [address] [place] [address] PCP - General Family Medicine 05/08/23
--- OUTSIDE RECORDS SUMMARY | 2024-12-06 18:38 | XMS_ITS | Patient Health Record ---
Author Organization [facility] Address [address] [place] [address] Care Team Providers Care Design Center Consultant Name Role Phone SHELTON PAGE Primary Care Provider Reason For Referral No Information Medications Medication SIG (Take, Route, Frequency, Duration) Notes Start Date End Date Status Aspirin 81 mg 1 (one) tablet(s) or orally once a day; Duration: one 10/24/2013 Active Carvedilol 3.125 mg 1 (one) tablet(s) or orally 2 times a day; Duration: one 02/08/2014 Active Gabapentin 400 mg 1 (one) capsule(s) o oral 3 times a day; Duration: one 09/13/2014 Active Rybix ODT 50 mg 1 (one) tablet 2 ze 2 times a day; Duration: thirty 09/13/2014 Active Lisinopril 5 mg 2 (two) tablet(s) or orally once a day; Duration: one 07/19/2014 Active Sertraline HCl 100 mg ; Duration: one 01/11/2015 0 Active Digoxin 125 mcg (0.125 mg) 1 (one) table t(s) or orally once a day; Duration: one 07/19/2014 Active Sertraline HCl 01/12/2015 Act aminah Spironolactone 25 mg 1/2 tablet oral onc e oral once a day; Duration: one 08/16/2014 Active Baclofen 10 mg 1 (one) tablet(s) or oral 2 times a day; Duration: thirty 08/16/2014 Active Cyclobenzaprine HCl 10 mg ; Duration: thirty 07/1904/27/1899 Active clonazePAM 0.5 mg 1 (one) tablet oral oral once a day; Duration: one 08/16/2014 Active Problems Problem Type SNOMED Code ICD Code Onset Dates Problem Status W/U Status Risk Notes Problem Spasm (90456375) Spasm of muscle (728.85) Active confirmed Blane-Bin Problem Muscle pain (31805744) Unspecified myalgia and myositis (729.1) Active confirmed Blane-Bin Problem Major depression, single episode (99318213) Major depressive disorder, single episode, unspecified (F32.9) Active confirmed Blane-Bin Problem Generalized anxiety disorder (87329875) Generalized anxiety disorder (F41.1) Active confirmed Blane-Bin Problem Essential hypertension (26462331) Essential (primary) hypertension (I10) Active confirmed Blane-Bin Problem Atherosclerotic heart disease of [place] coronary artery without angina pectoris (590013266093546) Atherosclerotic heart disease of [place] coronary artery without angina pectoris (I25.10) Active confirmed Blane-Bin Problem Pain of knee region (finding) (7339337220) Pain in unspecified knee (M25.569) Active confirmed Blane-Bin Problem Abnormal results of liver function studies (883522832) Abnormal results of liver function studies (R94.5) Active confirmed Blane-Bin Plan Of Treatment No Information Medical (General) History Surgical History Surgery Date(Month/Year) Gallbladder Hysterectomy
--- NOTE | 2024-12-06 18:41 | CT_ITS ---
PROCEDURE INFORMATION: Exam: CT Abdomen And Pelvis With Contrast Exam date and time: 12/06/2024 7:33 PM Age: 69 years old Clinical indication: Abdominal pain; Additional info: Mid upper abdominal pain TECHNIQUE: Imaging protocol: Computed tomography of the abdomen and pelvis with contrast. Radiation optimization: All CT scans at this facility use at least one of these dose optimization techniques: automated exposure control; mA and/or kV adjustment per patient size (includes targeted exams where dose is matched to clinical indication); or iterative reconstruction. Contrast material: ISOVUE; Contrast volume: 75 ml; Contrast route: IV; COMPARISON: No relevant prior studies available. FINDINGS: Lungs: The visualized lung bases demonstrate no focal infiltrates. Liver: The liver appears within normal limits. Gallbladder and biliary ducts: TheThere has been a cholecystectomy. Pancreas: The pancreas is normal. Spleen: The spleen is normal. Adrenal glands: The adrenal glands appear within normal limits. Kidneys and ureters: 1 mm nonobstructing stone within the left kidney lower pole. Stomach and bowel: The stomach appears within normal limits. No wall thickening or inflammatory change. Appendix: No evidence of appendicitis. Intraperitoneal space: No free air. No evidence for focal fluid collection or ascites. No evidence for omental thickening. Vasculature: Unremarkable. No abdominal aortic aneurysm. Lymph nodes: Unremarkable. No pathologically enlarged lymph nodes are identified. Urinary bladder: The bladder appears within normal limits. No wall thickening. Reproductive: There has been a hysterectomy. Bones/joints: Unremarkable. No acute fracture. Soft tissues: The visualize subcutaneous soft tissues and abdominal wall and flank wall appear unremarkable. IMPRESSION: 1. 1 mm nonobstructing stone within the left kidney lower pole. 2. No acute inflammatory process identified within the abdomen or pelvis.
--- NOTE | 2024-12-06 18:41 | XR_ITS ---
PROCEDURE INFORMATION: Exam: XR Chest Exam date and time: 12/06/2024 7:36 PM Age: 69 years old Clinical indication: Other: Upper abdominal pain/chest pain TECHNIQUE: Imaging protocol: Radiologic exam of the chest. Views: 1 view. COMPARISON: CT ABDOMEN PELVIS W CON 12/06/2024 7:33 PM FINDINGS: Lungs: Unremarkable. No consolidation. Pleural spaces: Unremarkable. No pleural effusion. No pneumothorax. Heart/Mediastinum: Unremarkable. No cardiomegaly. Bones/joints: Unremarkable. IMPRESSION: No acute findings.
--- NOTE | 2024-12-06 18:44 | HMH.EDGENADL ---
Discharge Plan Disposition Patient Disposition: Home, Self-Care Prescriptions Prescriptions: New dicyclomine 20 mg tablet 20 mg PO QID PRN (Reason: abdominal pain) Qty: 30 0RF No Action topiramate 100 mg tablet 200 mg PO HS Qty: 60 11RF gabapentin 400 mg capsule 400 mg PO BID Patient Comments: TAKE 1 CAPSULE BY MOUTH TWICE DAILY duloxetine 30 mg capsule,delayed release(DR/EC) 30 mg PO DAILY Patient Comments: TAKE 1 CAPSULE BY MOUTH EVERY DAY aspirin 81 mg tablet,delayed release (DR/EC) 81 mg PO DAILY docusate sodium 100 mg capsule 100 mg PO DAILY meloxicam 7.5 mg tablet 7.5 mg PO DAILY Patient Comments: TAKE 1 TABLET BY MOUTH DAILY NEEDED losartan 25 mg tablet 25 mg PO DAILY Patient Comments: TAKE 1 TABLET BY MOUTH EVERY DAY furosemide 20 mg tablet 20 mg PO DAILY Patient Comments: TAKE 1 TABLET BY MOUTH EVERY DAY potassium citrate 99 mg capsule 99 mg PO .COMPLEX Rx Instructions: 99 mg orally daily; spironolactone 25 mg tablet 12.5 mg PO .COMPLEX Rx Instructions: 12.5 mg orally m,w,f; mecobalamin (vitamin B12) 1,000 mcg tablet,chewable 1,000 mcg PO DAILY cholecalciferol (vitamin D3) 125 mcg (5,000 unit) capsule 125 mcg PO DAILY carvedilol 12.5 mg tablet 12.5 mg PO BID Qty: 60 5RF Linzess 145 mcg capsule 145 mcg PO DAILY omega 2-hih-lal-fish oil [Fish Oil] 300-1,000 mg capsule 1 cap PO DAILY Referrals Follow up/Referrals: Sonia Barlow [Primary Care Provider, Medical] - See instructions Activity Restrictions/Add. Instructions Additional Instructions/Restrictions: You are being prescribed Bentyl today for muscle spasms. I encourage you to take this 4 times daily as needed as prescribed. Your workup today did not demonstrate any significant findings. I encourage you to follow-up with your primary care physician if you continue to have issues. If you develop any new or worsening symptoms, or if you become concerned for your health for any reason, return to the emergency department for evaluation. Clinical Impressions Clinical Impression: Abdominal pain Instructions Patient Instructions: DI for Acute Abdominal Pain Print Language Print Language: [place] Discharge ED Provider: Arsh Baldwin Adult [facility] General Chief complaint: Abdominal Pain Stated complaint: stomach pain for 2 wks increased in pain Time Seen by Provider: 12/06/24 18:31 Mode of Arrival: Ambulatory Source of Information: Patient Limitations: No Limitations History of Present Illness HPI narrative: Staci Beauchamp is a 69F with a history of kidney tumor s/p resection, fibromyalgia, cardiomyopathy/CHF, prediabetes, brain tumor who presents to the emergency department for complaints of abdominal pain. Patient states over the last 2 weeks, she has had a pressure-like pain in her mid upper abdomen. She does describe it as feeling numb at times and that she is . She states that it is worsened when she stands up. She has reported intermittent chest pain over that time. But notes that she has a history of CHF. She denies shortness of breath. She denies any dysuria or hematuria. She does state that she has had her gallbladder removed, status post hysterectomy. She states that her last bowel movement was yesterday but the last bowel movement prior to that was Thursday of last week, which is abnormal for her. She states that she was seen by her primary care physician last week for these complaints and was supposed to get an outpatient CT, however they never called her to set up the appointment. She denies any nausea or vomiting. She denies any fevers or chills. Related Data Home Medications ?Medication ?Instructions ?Recorded ?Confirmed aspirin 81 mg tablet,delayed 81 mg PO DAILY 03/13/22 03/14/24 release cholecalciferol (vitamin D3) 125 125 mcg PO DAILY 03/13/22 03/14/24 mcg (5,000 unit) capsule docusate sodium 100 mg capsule 100 mg PO DAILY 03/13/22 03/14/24 duloxetine 30 mg capsule,delayed 30 mg PO DAILY 03/13/22 03/14/24 release furosemide 20 mg tablet 20 mg PO DAILY 03/13/22 03/14/24 gabapentin 400 mg capsule 400 mg PO BID 03/13/22 03/14/24 losartan 25 mg tablet 25 mg PO DAILY 03/13/22 03/14/24 mecobalamin (vitamin B12) 1,000 1,000 mcg PO DAILY 03/13/22 03/14/24 mcg chewable tablet meloxicam 7.5 mg tablet 7.5 mg PO DAILY 03/13/22 03/14/24 potassium citrate 99 mg capsule 99 mg PO .COMPLEX 03/13/22 03/14/24 spironolactone 25 mg tablet 12.5 mg PO .COMPLEX 03/13/22 03/14/24 linaclotide 145 mcg capsule 145 mcg PO DAILY 12/10/22 03/14/24 (Linzess) omega 8-opn-bew-fish oil 300 1 cap PO DAILY 12/10/22 03/14/24 mg-1,000 mg capsule (Fish Oil) Previous Rx's ?Medication ?Instructions ?Recorded carvedilol 12.5 mg tablet 12.5 mg PO BID propranolol intol, 06/11/22 no tremor improvement #60 tabs topiramate 100 mg tablet 200 mg (2 x 100 mg) PO HS Tremor 03/15/24 #60 tabs dicyclomine 20 mg tablet 20 mg PO QID PRN abdominal pain 12/06/24 #30 tabs Allergies Allergy/AdvReac Type Severity Reaction Status Date / Time No Known Drug Allergies Allergy Verified 03/14/24 15:57 [facility] Disclaimer: The information contained in this section may have been updated after the patient was seen, as this information can be updated by other users. Medical History KAMLA on CPAP Severity unknown, reportedly compliant on autopap, managed by [facility] (Dr. Maria Esther Romero). Tremor Stable, unchanged since initial consult February 2022. Intolerance to propanolol. Son with similar tremor at the age of 47. Clinical impression: Familial tremor. Surgical History History of nasal septoplasty History of colonoscopy History of total hysterectomy History of cholecystectomy Family History Other Cancer Coronary artery disease Diabetes Heart attack Social History Smoking Status: Never smoker alcohol intake: current alcohol intake frequency: holidays/special occasions only substance use type: denies use current occupational status: retired Travel in the last 8 weeks?: None household members: spouse housing: house marital status: Have you lived/traveled outside US in past 30 days?: No Contact w/someone who lives/traveled outside US past 30 days?: No Exposure to someone with infectious disease in past 14 days?: No Do you have a fever (greater than 100.4 F or 38 C)?: No Have you tested positive for COVID-19?: No Exposed to someone with COVID-19 in past 14 days?: No Do you have a sore throat?: No Do you have a cough?: No Do you have any weakness?: No Do you have any diarrhea?: No Are you experiencing any unusual bleeding?: No Do you have any muscle aches/pain?: No Do you have any abdominal pain?: No Are you experiencing loss of taste or smell?: No Other Medical History Have you received the Pneumonia Vaccine: Yes ROS Obtained: Yes Systems reviewed as appropriate & no additional complaints except as documented Physical Exam General General appearance: alert, in no apparent distress and obese Head Head exam: atraumatic Eye Eye exam: Present normal appearance ENT ENT exam: Present normal external ear exam Neck Neck exam: Present full ROM Chest Chest inspection: Present symmetric chest wall rise Respiratory Respiratory exam: Present normal lung sounds bilaterally; Absent respiratory distress Cardiovascular Cardiovascular exam: Present regular rate and normal rhythm Abdominal Exam Abdominal exam: Present soft and tenderness (Epigastric and suprapubic); Absent guarding or rigidity Extremities Exam Extremities exam: Present normal inspection Back Exam Back exam: Present normal inspection Neurological Exam Neurological exam: Present alert and oriented X3 Psychiatric Psychiatric exam: Present normal affect Skin Skin exam: Present warm and dry Medical Decision Making Medical Records Screening: Per USPSTF and CDC recommendations, given the prevalence of disease in our region, it is our hospital?s policy to screen for HIV and viral Hepatitis for all patients aged 18 and over and those with ongoing risk factors. Juan Carlos Inquiry Pt receiving controlled substance: No Vital Signs: 12/06/24 18:45 Temperature 98.4 F Temperature Source Oral Pulse Rate [Left Radial] 61 Respiratory Rate 15 Blood Pressure [Right Arm] 152/82 H Blood Pressure Mean [Right Arm] 105 Blood Pressure Source [Right Arm] Automatic Cuff 02 Sat by Pulse Oximetry 98 Lab Data Lab Results 12/06/24 18:35: Urine Color Yellow, Urine Appearance Clear, Urine pH 6.0, Ur Specific [place] <= 1.005, Urine Protein Negative, Urine Glucose (UA) Negative, Urine Ketones Negative, Urine Blood Negative, Urine Nitrate Negative, Urine Bilirubin Negative, Urine Urobilinogen 0.2, Ur Leukocyte Esterase 1+ A, Urine RBC None, Urine WBC 3-5, Ur Squamous Epith Cells 3-5, Urine Bacteria Trace 12/06/24 18:50: WBC 5.7, RBC 4.51, Hgb 12.8, Hct 39.5, MCV 87.6, MCH 28.4, MCHC 32.4, RDW 13.1, Plt Count 176, MPV 11.0 H, Neut % (Auto) 63.4, Lymph % (Auto) 23.9, [place] % (Auto) 9.1, Eos % (Auto) 3.1, Baso % (Auto) 0.3, Neut # (Auto) 3.6, Lymph # (Auto) 1.4, [place] # (Auto) 0.5, Eos # (Auto) 0.2, Baso # (Auto) 0.0, PT 10.9, INR 0.98, APTT 24.4, VBG pH 7.38, VBG pCO2 40.1, VBG pO2 71.3 H, VBG HCO3 23.1, VBG Total CO2 24.3, VBG O2 Saturation 94.2 H, VBG Base Excess -2.1, VBG Lactic Acid 1.0, Sodium 138, Potassium 3.7, Chloride 103, Carbon Dioxide 28, Anion Gap 10.7, BUN 19 H, Creatinine 0.90, Estimated Creat Clear 79, Estimated GFR 62, Est GFR ( Amer) 75, Glucose 96, Calcium 9.2, Total Bilirubin 0.6, AST 19, ALT 14, Alkaline Phosphatase 77, Troponin I < 0.01, Total Protein 6.8, Albumin 4.2, Globulin 2.6, Albumin/Globulin Ratio 1.6, Lipase 42 12/06/24 18:50 12/06/24 18:50 Orders (Tests/Meds): ED MEDICATIONS Discontinued Medications Generic Name Dose Route Start Last Admin Trade Name Freq PRN Reason Stop Dose Admin Iopamidol 75 ml 12/06/24 19:31 12/06/24 19:32 Iopamidol-370 (76%);100ml Bottle IV 12/06/24 19:32 75 ml ONCE ONE Administration Sodium Chloride 10 ml 12/06/24 19:31 12/06/24 19:32 Sodium Chloride 0.9% 10ml Syr (Rad Only) IV 12/06/24 19:32 10 ml ONCE ONE Administration ORDERS Category Date Time Status CT abdomen pelvis w con Stat Cat Scan 12/06/24 18:41 Completed CXR --portable [XR chest portable] Stat Exams 12/06/24 18:41 Completed CBC w/Auto Diff [Complete Blood Count Auto Diff] Stat Lab 12/06/24 18:50 Completed CMP [Comprehensive Metabolic Panel] Stat Lab 12/06/24 18:50 Completed HIV Combo Stat Lab 12/06/24 18:50 Received Hepatitis C Ab Qual. W/ RFX Stat Lab 12/06/24 18:50 Received Lipase Stat Lab 12/06/24 18:50 Completed PT INR [Prothrombin Time INR] Stat Lab 12/06/24 18:50 Completed PTT [Activated Partial Thrombo Time] Stat Lab 12/06/24 18:50 Completed Troponin I Q3H Lab 12/06/24 21:45 Ordered Troponin I Q3H Lab 12/07/24 00:45 Ordered Troponin I Stat Lab 12/06/24 18:50 Completed UA [Urinalysis and Microscopic] Stat Lab 12/06/24 18:35 Completed Urine Culture Stat Micro 12/06/24 18:35 Received VBG [Venous Blood Gas] Stat RT 12/06/24 18:50 Completed EKG Request [ECG Request] Stat Y 12/06/24 18:44 Ordered ECG Data Tracing #1: I reviewed this ECG and interpreted as documented below: Sinus bradycardia. No ST elevation or depression. Nonspecific T wave inversion in lead V3. QTc normal at 434. Medical Decision Narrative: Staci Beauchamp is a 69F with a history of kidney tumor s/p resection, fibromyalgia, cardiomyopathy/CHF, prediabetes, brain tumor who presents to the emergency department for complaints of abdominal pain. Patient states over the last 2 weeks, she has had a pressure-like pain in her mid upper abdomen. She does describe it as feeling numb at times and that she is . She states that it is worsened when she stands up. She has reported intermittent chest pain over that time. But notes that she has a history of CHF. She denies shortness of breath. She denies any dysuria or hematuria. She does state that she has had her gallbladder removed, status post hysterectomy. She states that her last bowel movement was yesterday but the last bowel movement prior to that was Thursday of last week, which is abnormal for her. She states that she was seen by her primary care physician last week for these complaints and was supposed to get an outpatient CT, however they never called her to set up the appointment. She denies any nausea or vomiting. She denies any fevers or chills. On arrival, patient is mildly hypertensive with blood pressure 152/82, borderline bradycardic with heart rate 55, oxygen saturation 97% on room air. Physical exam, as stated above, revealed an overall well-appearing female in no distress. She is alert and oriented. Cardiopulmonary exam is unremarkable. Abdomen with tenderness in the epigastric and suprapubic region. No significant distention. Differential diagnosis includes, but is not limited to: Acute pancreatitis, bowel obstruction, constipation, peptic ulcer disease, muscle spasm, ACS, urinary tract affection, among others. The most morbid conditions were considered and workup was based on these. Workup in the emergency department included: CBC with differential, PT/INR, APTT, VBG with lactate, CMP, troponin, lipase, urinalysis, EKG, chest x-ray, CT abdomen pelvis with IV contrast. Laboratory workup reviewed by me personally was unremarkable. Initial troponin less than 0.01. Urinalysis without evidence of infection. Chest x-ray interpreted by me personally. No focal consolidation, no pneumothorax, no widened mediastinum, no enlargement of the cardiac silhouette. Unremarkable chest x-ray. See radiology report for details. CT abdomen pelvis interpreted by me personally. No acute findings. Patient does have a small kidney stone within the left kidney that is nonobstructing. See final radiology report for details. On reassessment, patient remained in stable condition. Is felt that she is appropriate for discharge at this time with plan to follow with her primary care physician. Will prescribe Bentyl for muscle spasms. Return precautions were given. All questions were answered. She demonstrated understanding and was in agreement this plan. She was then discharged from the emergency department in stable condition. Critical Care Critical Care Time Critical Care Time: No
[2024-12-06 18:45] VITALS: BP 152/82; PULSE 61; RESP 15; TEMP 36.9; O2SAT 98; BMI 33.9
[2024-12-06 18:48] LABS: Microscopic, Urine URINE MICROSCOPIC (MICROSCOPIC)
[2024-12-06 18:50] LABS: Bilirubin,Urine Negative (Negative); Color,Urine YELLOW (Yellow); Glucose,Urine (UA) Negative (Negative); Ketones,Urine Negative (Negative); Leukocyte Esterase,Urine 1+ (Negative); PH,Urine 6.0 (5.0-8.5); Protein,Urine Negative (Negative); Specific Gravity, Urine <= 1.005 (1.005-1.030); Urobilinogen,Urine 0.2 EU/dl (0.2)
[2024-12-06 19:00] LABS: Lactate Venous 1.0 mmol/L (0.4-2.0); VBG HCO3 23.1 mmol/L (23-30); VBG PCO2 40.1 mmol/L (35-51); VBG PH 7.38 mmol/L (7.31-7.41); VBG PO2 71.3 mmol/L (28-40)
[2024-12-06 19:05] LABS: Hematocrit 39.5 % (37.0-47.0); Hemoglobin 12.8 g/dL (12.2-16.2); Immature Granulocytes % 0.2 %; Mean Corpuscular HGB Conc 32.4 g/dL (31.8-35.4); Mean Corpuscular Hemoglobin 28.4 pg (27.0-31.2); Mean Corpuscular Volume 87.6 fl (81-99); Nucleated Red Blood Cells % 0 %; Platelet Count 176 K/mm3 (142-424); Red Blood Count 4.51 M/mm3 (4.20-5.40); Red Cell Distribution Width-SD 41.7 fL; White Blood Count 5.7 K/mm3 (4.8-10.8)
[2024-12-06 19:09] LABS: Albumin Level 4.2 g/dl (3.5-5.0); Chloride 103 mmol/L (98-107); Potassium 3.7 mmoL/L (3.5-5.1); Sodium 138 mmol/L (136-145)
[2024-12-06 19:11] LABS: Blood Urea Nitrogen 19 mg/dl (7-17); Creatinine Clearance Estimated 79 mL/min (50-200); Creatinine,Serum 0.90 mg/dl (0.52-1.04); Estimated Glomerular Filt Rate 62 ml/min (>60); GFR (African American) 75 ML/MIN (>60)
[2024-12-06 19:12] LABS: Alanine Aminotransferase 14 U/L (12-78); Albumin/Globulin Ratio 1.6 (1.1-1.8); Alkaline Phosphatase 77 U/L (38-126); Anion Gap 10.7 mEq/L (5-15); Aspartate Amino Transferase 19 U/L (14-36); Bilirubin,Total 0.6 mg/dl (0.2-1.3); Calcium 9.2 mg/dl (8.4-10.2); Carbon Dioxide 28 mmol/L (22.0-30.0); Globulin 2.6 g/dL (1.3-3.2); Glucose 96 mg/dl (74-100); Lipase 42 U/L (23-300); Total Protein,Serum 6.8 g/dl (6.3-8.2)
[2024-12-06 19:13] LABS: Activated Partial Thrombo Time 24.4 seconds (22.8-30.6); INR 0.98 (0.9-1.1); Prothrombin Time 10.9 seconds (10.1-12.5)
--- NOTE | 2024-12-06 19:20 | ECG_ITS ---
APPROVED REPORT Exam: Resting ECG HR:53 bpm ECG Measurements Heart Rate 53 AXES OK 188 P 54 QRSd 105 QRS 8 QT 450 T 70 QTc 434 Conclusion SINUS BRADYCARDIA LOW QRS VOLTAGE IN PRECORDIAL LEADS [QRS DEFLECTION < 1.0 mV IN CHEST LEADS] NONSPECIFIC ST & T-WAVE ABNORMALITY BORDERLINE ECG UNCONFIRMED REPORT Sinus bradycardia. Nonspecific T wave inversions in lead V3. No ST elevation or depression Electronically signed by : KRISTIAN JENNINGS, 12/07/2024 18:13:39
[2024-12-06 19:26] LABS: Troponin I < 0.01 ng/ml (0.00-0.034)
[2024-12-06 19:26] LABS: Bacteria,Urine Trace /lpf
[2024-12-06] MEDS: IOPAMIDOL-370 (76%);100ML BOTTLE 75 ML IV (19:32)
[2024-12-06] MEDS: SODIUM CHLORIDE 0.9% 10ML SYR (RAD ONLY) 10 ML IV (19:32)
[2024-12-06 20:39] VITALS: BP 163/79; PULSE 68; RESP 18; TEMP 36.7; O2SAT 98
[2024-12-06 21:02] LABS: Hepatitis C Ab Qual. W/ RFX NEGATIVE (Negative)
== END 2024-12-06 20:44 | disposition home or self-care (01) ==
PROVIDERS: Emergency Provider Student in an Organized Health Care Education/Training Program; PCP Family Medicine
DX: R10.13 Epigastric pain (principal); R10.30 Lower abdominal pain, unspecified; R00.1 Bradycardia, unspecified; N20.0 Calculus of kidney; I11.0 Hypertensive heart disease with heart failure; I50.9 Heart failure, unspecified
CPT/HCPCS: 71045; 74177; 80053; 81001; 82803; 83690; 84484; 85025; 85610; 85730; 86803; 87086; 87389; 93005; 99285; Q9967

== ENCOUNTER 2024-12-30 16:05 | Emergency (ER) | payer MEDICARE, OTHER, SELFPAY ==
[2024-12-30 16:15] VITALS: BP 101/68; PULSE 55; RESP 18; TEMP 36.8; O2SAT 98; BMI 34.2
--- NOTE | 2024-12-30 16:19 | XR_ITS ---
PROCEDURE INFORMATION: Exam: XR Complete Acute Abdomen Series Including Chest Exam date and time: 12/30/2024 5:05 PM Age: 69 years old Clinical indication: Abdominal pain; Additional info: Abdominal pain x 1 month TECHNIQUE: Imaging protocol: Radiologic exam. Complete acute abdomen series, including 2 or more views of the abdomen and a single view chest. COMPARISON: CR XR CHEST PORTABLE 12/06/2024 7:36 PM FINDINGS: Lungs: Normal. No consolidation. Pleural spaces: Normal. No pleural effusions. No pneumothorax. Heart/Mediastinum: Normal. No cardiomegaly. Gastrointestinal tract: Nonspecific, but likely nonobstructive bowel gas pattern. Intraperitoneal space: Right upper quadrant surgical clips. Vasculature: Vascular calcifications. Bones/joints: Normal. No acute fracture. Soft tissues: Normal. IMPRESSION: Nonspecific, but likely nonobstructive bowel gas pattern.
--- OUTSIDE RECORDS SUMMARY | 2024-12-30 16:26 | XMS_ITS | Clinical Summary ---
Author Organization Healthcare Address [address] [place] [address] Care Team Providers Care Campaign Analyst Name Role Phone Ary Pratt MD Primary Care Provider [phone] Swapnil Garcia MD Unavailable [phone] Allergies Active Allergy Reactions Criticality Noted Date [...] UKY-Zoster Vaccines (2 of 3) 08/05/2016 06/10/2016 [id number] Vaccine (3 - season) 2023 04/23/2021, 09/06/2020 [...] age to complete this topic Insurance MEDICARE [facility] Care Teams Campaign Analyst Relationship Specialty Start Date End Date Ary Pratt MD [address] [place] [address] PCP - General 09/07/20 Swapnil Garcia MD [address] [facility] [address] [place] [address] Surgeon Neurosurgery 05/22/22
--- OUTSIDE RECORDS SUMMARY | 2024-12-30 16:26 | XMS_ITS | Clinical Summary ---
Author Organization [facility] Address [address] [place] [address] Care Team Providers Care Hay Stacker Operator Name Role Phone Sonia Barlowgh Primary Care Provider [phone] Allergies Active Allergy Reactions Criticality Noted Date [...] Description 02/20/2025 1:30 PM [address]T [address] Procedure [facility] [address] [address] 02/20/2025 2:15 PM EDT Office Visit [facility] [address] [address] [address] [...] SCREENING 06/07/2019 COVID-19 Vaccine ( - season) 2024 INFLUENZA VACCINE 01/25/2025 01/10/2020, , 06/10/2016 COLONOSCOPY 10/22/2032 10/22/2022, 04/27/2012 COLORECTAL CANCER SCREENING 10/22/2032 Procedures Procedure Name Priority Date/Time Associated Diagnosis Comments HEMOGLOBIN A1C Routine 10/30/2014 2:00 PM EDT from Last 3 Months or Most Recently Relevant to Health Maintenance Results * (ABNORMAL) Hemoglobin A1c (10/30/2014 2:00 PM EDT) Hemoglobin A1C 6.2(H) 4.00 - 6.00 % [facility] Comment: DF by IF @ 10/30/2014 14:52 The [place] [employer] recommends maintenance of Hemoglobin A1C at 7.0% or lower. Goals for Hemoglobin A1C reduction may need to be modified if hypoglycemia is a problem. Mean Bld Glu Estim. 126 mg/dL [facility] Blood specimen (specimen) 10/30/2014 2:00 PM EDT Narrative [facility] - 10/30/2014 2:52 PM EDT Specimen Type: Blood Swapnil Jorge Jr., MD LAB BLOOD ORDERABLE S Final Result [facility] [address] [place] [address], [place] [phone] from Last 3 Months or Most Recently Relevant to Health Maintenance Insurance MEDICARE A & B Member Subscriber Plan / Payer (Ef fective 2016-Present) Name:Staci Beauchamp Member ID:[id number] Relation to Subscriber:Self Name:Staci Beauchamp Subscriber ID:[id number] Payer ID:[id number] Group ID:Not on file Type:Not on file Address: [facility] [id number] Care Teams Hay Stacker Operator Relationship Specialty Start Date End Date Sonia Barlow DO [address] [place] [address] PCP - General Family Medicine 05/08/23
--- OUTSIDE RECORDS SUMMARY | 2024-12-30 16:26 | XMS_ITS | Encounter Summary ---
Author Organization Healthcare Address [address] [place] [address] Care Team Providers Care General Farm Manager Name Role Phone Ary Pratt MD Primary Care Provider [phone] Swapnil Garcia MD Unavailable [phone] Encounter Details Date Type Department Care Team (Late st Contact Info) Description 03/24/2022 Community [facility] [address] [place] [address] Katelin Whitten, GLOBAL ACCOUNT DIRECTOR [address] [place] [address] Benign neoplasm of meninges (CMS/HCC) (Primary Dx) [...] meninges documented in this encounter Care Teams General Farm Manager Relationship Specialty Start Date End Date Ary Pratt MD [address] [place] [address] PCP - General 09/07/20 Swapnil Garcia MD [address] [place] [id number] Surgeon Neurosurgery 05/22/22 documented as of this encounter
--- OUTSIDE RECORDS SUMMARY | 2024-12-30 16:26 | XMS_ITS | Patient Health Record ---
Author Organization [facility] Address [address] [place] [address] Care Team Providers Care Agricultural Equipment Sales Engineer Name Role Phone SHELTON PAGE Primary Care Provider [phone] Reason For Referral No Information Medications Medication [...] Status W/U Status Risk Notes Problem Spasm (48950240) Spasm of muscle (728.85) Active confirmed Blane-Bin Problem Muscle pain (36738421) Unspecified myalgia and myositis (729.1) Active confirmed Blane-Bin Problem Major depression, single episode (18593282) Major depressive disorder, single episode, unspecified (F32.9) Active confirmed Blane-Bin Problem Generalized anxiety disorder (27081631) Generalized anxiety disorder (F41.1) Active confirmed Blane-Bin Problem Essential hypertension (34499328) Essential (primary) hypertension (I10) Active confirmed Blane-Bin Problem Atherosclerotic heart disease of red devil coronary artery without angina pectoris (057656134562769) 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
--- OUTSIDE RECORDS SUMMARY | 2024-12-30 16:26 | XMS_ITS | Encounter Summary ---
Author Organization [facility] Address [address] [place] [address] Care Team Providers Care Awning Erector Name Role Phone Sonia Barlow Primary Care Provider [phone] Reason for Visit * Reason Comments Med Refill Encounter Details Date Type Department Care Team (Late st Contact Info) Description 11/07/2023 Refill [facility] [address] [address] Tierra [...] 1:30 PM EDT Ancillary Procedure [facility] [address] [address] 02/20/2025 2:15 PM EDT Office Visit [facility] [address] [address] [address] Romero MD [address] [address] documented as of this encounter Visit Diagnoses Not on filedocumented in this encounter Care Teams Awning Erector Relationship Specialty Start Date End Date Sonia Barlow DO [address] [place] [address] PCP - General Family Medicine 05/08/23 documented as of this encounter
--- OUTSIDE RECORDS SUMMARY | 2024-12-30 16:26 | XMS_ITS | Encounter Summary ---
Author Organization [facility] Address [address] [place] [address] Care Team Providers Care Development Associate Name Role Phone Ary Pratt MD Primary Care Provider [phone] Swapnil Garcia MD Unavailable [phone] Reason for Referral * Consultation (Routine) - Closed Specialty Diagnoses / Procedures Referred By Contac t Referred To Contact Neurosurgery Diagnoses Benign meningioma (CMS/HCC) Katelin Whitten APRN [address] [place] [address] Phone: tel: fax: Referral ID Status Reason Start Date Expiration Date V isits Requested Visits Authorized [id number] Closed Specialty Services Required 05/05/2022 11/04/2023 1 1 Encounter Details Date Type Department Care Team (Late st Contact Info) Description 05/05/2022 Community [facility] Community Practice [address] [place] [address] Katelin Whitten APRN [address] [place] [address] Benign meningioma (CMS/HCC) (Primary Dx) [...] meninges documented in this encounter Care Teams Development Associate Relationship Specialty Start Date End Date Ary Pratt MD [address] [place] [address] PCP - General 09/07/20 Swapnil Garcia MD [address] [facility] [address] [place] [address] Surgeon Neurosurgery 05/22/22 documented as of this encounter
[2024-12-30 16:32] LABS: Hematocrit 39.7 % (37.0-47.0); Hemoglobin 12.9 g/dL (12.2-16.2); Immature Granulocytes % 0.2 %; Mean Corpuscular HGB Conc 32.5 g/dL (31.8-35.4); Mean Corpuscular Hemoglobin 28.9 pg (27.0-31.2); Mean Corpuscular Volume 88.8 fl (81-99); Nucleated Red Blood Cells % 0 %; Platelet Count 181 K/mm3 (142-424); Red Blood Count 4.47 M/mm3 (4.20-5.40); Red Cell Distribution Width-SD 43.5 fL; White Blood Count 5.6 K/mm3 (4.8-10.8)
[2024-12-30 16:35] LABS: Microscopic, Urine URINE MICROSCOPIC (MICROSCOPIC)
[2024-12-30 16:42] LABS: Bilirubin,Urine Negative (Negative); Color,Urine YELLOW (Yellow); Glucose,Urine (UA) Negative (Negative); Ketones,Urine Negative (Negative); Leukocyte Esterase,Urine TRACE (Negative); PH,Urine 6.0 (5.0-8.5); Protein,Urine Negative (Negative); Specific Gravity, Urine 1.015 (1.005-1.030); Urobilinogen,Urine 0.2 EU/dl (0.2)
[2024-12-30 16:45] LABS: Albumin Level 4.3 g/dl (3.5-5.0); Chloride 110 mmol/L (98-107); Potassium 4.4 mmoL/L (3.5-5.1); Sodium 142 mmol/L (136-145)
[2024-12-30 16:48] LABS: Alanine Aminotransferase 16 U/L (12-78); Albumin/Globulin Ratio 1.6 (1.1-1.8); Alkaline Phosphatase 80 U/L (38-126); Anion Gap 12.4 mEq/L (5-15); Aspartate Amino Transferase 25 U/L (14-36); Bilirubin,Total 0.5 mg/dl (0.2-1.3); Blood Urea Nitrogen 17 mg/dl (7-17); Carbon Dioxide 24 mmol/L (22.0-30.0); Creatinine Clearance Estimated 79 mL/min (50-200); Creatinine,Serum 0.90 mg/dl (0.52-1.04); Estimated Glomerular Filt Rate 62 ml/min (>60); GFR (African American) 75 ML/MIN (>60); Globulin 2.7 g/dL (1.3-3.2); Lipase 42 U/L (23-300); Total Protein,Serum 7.0 g/dl (6.3-8.2)
[2024-12-30 16:49] LABS: Calcium 9.5 mg/dl (8.4-10.2); Glucose 126 mg/dl (74-100)
[2024-12-30 17:05] LABS: Troponin I < 0.01 ng/ml (0.00-0.034)
[2024-12-30 17:07] LABS: Bacteria,Urine 1+ /lpf
--- NOTE | 2024-12-30 19:32 | CT_ITS ---
PROCEDURE INFORMATION: Exam: CT Abdomen And Pelvis With Contrast Exam date and time: 12/30/2024 7:55 PM Age: 69 years old Clinical indication: Abdominal pain TECHNIQUE: Imaging protocol: Computed tomography of the abdomen and pelvis with contrast. Radiation optimization: All CT scans at this facility use at least one of these dose optimization techniques: automated exposure control; mA and/or kV adjustment per patient size (includes targeted exams where dose is matched to clinical indication); or iterative reconstruction. Contrast material: ISOVUE; Contrast volume: 75 ml; Contrast route: IV; COMPARISON: CT ABDOMEN PELVIS W CON 12/06/2024 7:33 PM FINDINGS: Lungs: Mild scarring and atelectasis in the lower lungs. Liver: Normal. No mass. Gallbladder and biliary ducts: Gallbladder is absent. Pancreas: Normal. No ductal dilation. Spleen: Normal. No splenomegaly. Adrenal glands: Normal. No mass. 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 Mild bilateral renal scarring. Stomach and bowel: Unremarkable. No obstruction. No mucosal thickening. Appendix: Unremarkable appendix. Intraperitoneal space: Unremarkable. No free air. No significant fluid collection. Vasculature: The arteries demonstrate mild atherosclerotic disease. Lymph nodes: Unremarkable. No enlarged lymph nodes. Urinary bladder: Unremarkable as visualized. Reproductive: Status post hysterectomy. Bones/joints: Unremarkable. No acute fracture. Soft tissues: Tiny fat containing umbilical hernia. There is a healed anterior abdominal wall incision. There is a 12 mm right breast nodule on image 16 series 3 that is unchanged from prior studies. IMPRESSION: No acute findings.
--- NOTE | 2024-12-30 19:32 | XR_ITS ---
PROCEDURE INFORMATION: Exam: XR Chest Exam date and time: 12/30/2024 8:00 PM Age: 69 years old Clinical indication: Shortness of breath; Additional info: Short of breath TECHNIQUE: Imaging protocol: Radiologic exam of the chest. Views: 1 view. COMPARISON: CR Acute Abdomen 12/30/2024 5:05 PM FINDINGS: Lungs: Mild scarring and atelectasis in the lower lungs. Pleural spaces: Unremarkable. No pleural effusion. No pneumothorax. Heart/Mediastinum: Unremarkable. No cardiomegaly. Vasculature: Vascular calcifications. Bones/joints: Unremarkable. IMPRESSION: No acute findings.
--- NOTE | 2024-12-30 19:34 | ED_ITS ---
<Statement entered by Melly Martinez MD - 12/30/24 23:22> I was consulted by the CAREN, and we discussed the complexity of the problems being addressed. I approved the treatment and management plan for this patient's care in the emergency department, thus performing a substantive portion of the medical decision making. Melly Martinez MD, YULISSA, FACEP Discharge Plan Disposition Patient Disposition: Home, Self-Care Prescriptions Prescriptions: No Action topiramate 100 mg tablet 200 mg PO HS Qty: 60 11RF gabapentin 400 mg capsule 400 mg PO BID Patient Comments: TAKE 1 CAPSULE BY MOUTH TWICE DAILY duloxetine 30 mg capsule,delayed release(DR/EC) 30 mg PO DAILY Patient Comments: TAKE 1 CAPSULE BY MOUTH EVERY DAY aspirin 81 mg tablet,delayed release (DR/EC) 81 mg PO DAILY docusate sodium 100 mg capsule 100 mg PO DAILY meloxicam 7.5 mg tablet 7.5 mg PO DAILY Patient Comments: TAKE 1 TABLET BY MOUTH DAILY NEEDED losartan 25 mg tablet 25 mg PO DAILY Patient Comments: TAKE 1 TABLET BY MOUTH EVERY DAY furosemide 20 mg tablet 20 mg PO DAILY Patient Comments: TAKE 1 TABLET BY MOUTH EVERY DAY potassium citrate 99 mg capsule 99 mg PO .COMPLEX Rx Instructions: 99 mg orally daily; spironolactone 25 mg tablet 12.5 mg PO .COMPLEX Rx Instructions: 12.5 mg orally m,w,f; mecobalamin (vitamin B12) 1,000 mcg tablet,chewable 1,000 mcg PO DAILY cholecalciferol (vitamin D3) 125 mcg (5,000 unit) capsule 125 mcg PO DAILY carvedilol 12.5 mg tablet 12.5 mg PO BID Qty: 60 5RF Linzess 145 mcg capsule 145 mcg PO DAILY omega 0-ztk-qcq-fish oil [Fish Oil] 300-1,000 mg capsule 1 cap PO DAILY dicyclomine 20 mg tablet 20 mg PO QID PRN (Reason: abdominal pain) Qty: 30 0RF Referrals Follow up/Referrals: Sonia Barlow [Primary Care Provider, Medical] - See instructions Ede Hayes II, MD [Staff Physician, Gastroenterology] - See instructions Activity Restrictions/Add. Instructions Additional Instructions/Restrictions: Please call Dr. Hayes for further testing for abdominal pain. Return to ED for any worsening problems or concerns. Clinical Impressions Clinical Impression: Abdominal pain Instructions Patient Instructions: DI for Acute Abdominal Pain Print Language Print Language: Rwandan Discharge ED Provider: Melly Martinez General Adult HPI General Chief complaint: Abdominal Pain Stated complaint: stomach pain,numbness left leg,leftfoot Time Seen by Provider: 12/30/24 19:23 Mode of Arrival: Ambulatory Source of Information: Patient Description of Symptoms (Recalled from ER Triage Doc. by RN): Pt presents for evaluation of generalized mid abdominal pain that feel like there is a band/tigtness. Pt states she was evaluated for this a few weeks here in the ER and received a negative workup. Pt states she has not had a bowel movement in 2 days. Pt also reports when she stands up manzano begins to have bilateral leg numbness/tingling. History of Present Illness HPI narrative: 69-year-old female presents to the ED today for complaints of abdominal pain. Says she feels like there is a band around her lower stomach. She feels like the top of her stomach is also painful. She says she has been feeling numbness in her legs when she walks. She has no back pain and no injuries. She feels like what ever is going on with her legs is being caused by her abdominal pain. She does take Linzess. She does have hypertension but no diabetes. No nausea, vomiting or diarrhea. No fevers or chills. She says that she has been to the ED for this in the past. Related Data Home Medications ?Medication ?Instructions ?Recorded ?Confirmed aspirin 81 mg tablet,delayed 81 mg PO DAILY 03/13/2205/14/23 release cholecalciferol (vitamin D3) 125 125 mcg PO DAILY 02/2503/14/24 mcg (5,000 unit) capsule docusate sodium 100 mg capsule 100 mg PO DAILY 2 03/14/24 duloxetine 30 mg capsule,delayed 30 mg PO DAILY 03/14/24 release furosemide 20 mg tablet 20 mg PO DAILY 03/13/2202/25 gabapentin 400 mg capsule 400 mg PO BID 03/13/2203/14 losartan 25 mg tablet 25 mg PO DAILY 03/13/2202/25 mecobalamin (vitamin B12) 1,000 1,000 mcg PO DAILY 03/14/24 mcg chewable tablet meloxicam 7.5 mg tablet 7.5 mg PO DAILY 03/13/22 potassium citrate 99 mg capsule 99 mg PO .COMPLEX 02/2503/14/24 spironolactone 25 mg tablet 12.5 mg PO .COMPLEX 03/14/24 linaclotide 145 mcg capsule 145 mcg PO DAILY 12/10/22 03/14/24 (Linzess) omega 3-hpo-yep-fish oil 300 1 cap PO DAILY 12/10/22 1 05/14/23 mg-1,000 mg capsule (Fish Oil) Previous Rx's ?Medication ?Instructions ?Recorded carvedilol 12.5 mg tablet 12.5 mg PO BID propranolol i ntol, 06/11/22 no tremor improvement #60 tabs topiramate 100 mg tablet 200 mg (2 x 100 mg) PO HS Tr emor 03/15/24 #60 tabs dicyclomine 20 mg tablet 20 mg PO QID PRN abdominal p ain 12/06/24 #30 tabs Allergies Allergy/AdvReac Type Severity Reaction Status Date / Time No Known Drug Allergies Allergy Verified 03/14/24 15:57 [facility] Disclaimer: The information contained in this section may have been updated after the patient was seen, as this information can be updated by other users. Medical History KAMLA on CPAP Severity unknown, reportedly compliant on autopap, managed by [facility] (Dr. Maria Esther Romero). Tremor Stable, unchanged since initial consult February 2022. Intolerance to propanolol. Son with similar tremor at the age of 47. Clinical impression: Familial tremor. Surgical History History of nasal septoplasty History of colonoscopy History of total hysterectomy History of cholecystectomy Family History Other Cancer Coronary artery disease Diabetes Heart attack Social History Smoking Status: Never smoker alcohol intake: current alcohol intake frequency: holidays/special occasions only substance use type: denies use current occupational status: retired Travel in the last 8 weeks?: None household members: spouse housing: house marital status: Have you lived/traveled outside US in past 30 days?: No Contact w/someone who lives/traveled outside US past 30 days?: No Exposure to someone with infectious disease in past 14 days?: No Do you have a fever (greater than 100.4 F or 38 C)?: No Have you tested positive for COVID-19?: No Exposed to someone with COVID-19 in past 14 days?: No Do you have a sore throat?: No Do you have a cough?: No Do you have any weakness?: No Do you have any diarrhea?: No Are you experiencing any unusual bleeding?: No Do you have any muscle aches/pain?: No Do you have any abdominal pain?: No Are you experiencing loss of taste or smell?: No Other Medical History Have you received the Pneumonia Vaccine: Yes ROS Obtained: Yes Systems reviewed as appropriate & no additional complaints except as documented Constitutional Constitutional: Reports as per HPI Physical Exam General General appearance: alert Head Head exam: atraumatic and normocephalic Eye Eye exam: Present PERRL and EOMI ENT ENT exam: Present normal oropharynx and mucous membranes moist Neck Neck exam: Present full ROM and trachea midline Respiratory Respiratory exam: Present normal lung sounds bilaterally Cardiovascular Cardiovascular exam: Present normal rhythm, bradycardia, normal heart sounds, +S1 and +S2 Abdominal Exam Abdominal exam: Present soft and normal bowel sounds Extremities Exam Extremities exam: Present normal inspection, full ROM and normal capillary refill Neurological Exam Neurological exam: Present alert, oriented X3 and normal gait Skin Skin exam: Present warm, dry and intact Medical Decision Making Medical Records Screening: Per USPSTF and CDC recommendations, given the prevalence of disease in our region, it is our hospital?s policy to screen for HIV and viral Hepatitis for all patients aged 18 and over and those with ongoing risk factors. Juan Carlos Inquiry Pt receiving controlled substance: No Juan Carlos was queried for this patient: No Vital Signs: 12/30/24 16:15 12/30/24 22:02 Temperature 98.2 F 97.9 F Temperature Source Temporal Artery Scan Pulse Rate 52 L Pulse Rate [Right] 55 L Respiratory Rate 18 20 Blood Pressure 175/84 H Blood Pressure [Right Arm] 101/68 L Blood Pressure Mean [Right Arm] 79 Blood Pressure Source [Right Arm] Automatic Cuff Blood Pressure Position [Right Arm] Sitting 02 Sat by Pulse Oximetry 98 Oxygen Delivery Method Room Air Room Air Lab Data Lab Results 12/30/24 16:25: WBC 5.6, RBC 4.47, Hgb 12.9, Hct 39.7, MCV 88.8, MCH 28.9, MCHC 32.5, RDW 13.4, Plt Count 181, MPV 10.8 H, Neut % (Auto) 61.6, Lymph % (Auto) 26.6, [place] % (Auto) 8.5, Eos % (Auto) 2.7, Baso % (Auto) 0.4, Neut # (Auto) 3.5, Lymph # (Auto) 1.5, [place] # (Auto) 0.5, Eos # (Auto) 0.2, Baso # (Auto) 0.0, Sodium 142, Potassium 4.4, Chloride 110 H, Carbon Dioxide 24, Anion Gap 12.4, BUN 17, Creatinine 0.90, Estimated Creat Clear 79, Estimated GFR 62, Est GFR ( Amer) 75, Glucose 126 H, Calcium 9.5, Total Bilirubin 0.5, AST 25, ALT 16, Alkaline Phosphatase 80, Troponin I < 0.01, Total Protein 7.0, Albumin 4.3, Globulin 2.7, Albumin/Globulin Ratio 1.6, Lipase 42 12/30/24 16:30: Urine Color Yellow, Urine Appearance Clear, Urine pH 6.0, Ur Specific Moore 1.015, Urine Protein Negative, Urine Glucose (UA) Negative, Urine Ketones Negative, Urine Blood Negative, Urine Nitrate Negative, Urine Bilirubin Negative, Urine Urobilinogen 0.2, Ur Leukocyte Esterase Trace, Urine RBC None, Urine WBC 3-5, Ur Squamous Epith Cells 5-10, Urine Bacteria 1+ 12/30/24 19:45: Magnesium 2.1, Lipase 43 12/30/24 16:25 12/30/24 16:25 Orders (Tests/Meds): ED MEDICATIONS Generic Name Dose Route Start Last Admin Trade Name Freq PRN Reason Stop Dose Admin Sodium Chloride 8 ml 12/30/24 19:32 Sodium Chloride 0.9% 10ml Vial IV 01/29/25 19:31 NEEDED PRN dilute pepcid Sodium Chloride 10 ml 12/30/24 19:57 12/30/24 19:58 Sodium Chloride 0.9% 10ml Syr (Rad Only) IV 01/29/25 19:56 10 ml NEEDED PRN Administration Maintain IV Site Discontinued Medications Generic Name Dose Route Start Last Admin Trade Name Lukasz PRN Reason Stop Dose Admin Famotidine 20 mg 12/30/24 19:32 12/30/24 19:45 Famotidine 20mg/2ml Vial IV 12/30/24 19:33 20 mg ONCE ONE Administration Iopamidol 75 ml 12/30/24 19:57 12/30/24 19:58 Iopamidol-370 (76%);100ml Bottle IV 12/30/24 19:58 75 ml ONCE ONE Administration ORDERS Category Date Time Status CT abdomen pelvis w con Stat Cat Scan 12/30/24 19:32 Completed Chest XR -- portable [XR chest portable] Stat Exams 12/30/24 19:32 Completed XR acute abdomen series Stat Exams 12/30/24 16:19 Completed Complete Blood Count Auto Diff Stat Lab 12/30/24 16:25 Completed Comprehensive Metabolic Panel Stat Lab 12/30/24 16:25 Completed Lipase Stat Lab 12/30/24 16:25 Completed Lipase Stat Lab 12/30/24 19:45 Results Magnesium Stat Lab 12/30/24 19:45 Results Trop I [Troponin I] Stat Lab 12/30/24 19:45 Results Troponin I Q3H Lab 12/30/24 22:45 Ordered Troponin I Q3H Lab 12/31/24 01:45 Ordered Troponin I Stat Lab 12/30/24 16:25 Completed Urinalysis and Microscopic Stat Lab 12/30/24 16:30 Completed Medical Decision Narrative: patient is a 69-year-old female presenting to the emergency department for evaluation of abdominal pain for a month where she feels like a band is wrapping around her stomach. No nausea, vomiting or diarrhea. No back pain no injuries no diabetes. Patient is hemodynamically stable and nontoxic-appearing upon arrival, afebrile. Differential diagnosis includes enteritis, gastroenteritis, cholecystitis, among others. Workup will be conducted with hematologic labs, specific imaging, provocative tests. Initial inventions include crystalloid bolus, analgesics. Initial workup reviewed by me hematologic labs are nonactionable. CT scan was read by radiology please see report. Discussed with patient that the CT does not show any thing that would definitively show her abdominal pain cause. I discussed with her following up with Dr. Hayes and her PCP for further testing. Patient safe for discharge home Critical Care Critical Care Time Critical Care Time: No
[2024-12-30] MEDS: FAMOTIDINE 20MG/2ML VIAL 20 MG IV (19:45)
[2024-12-30] MEDS: SODIUM CHLORIDE 0.9% 10ML SYR (RAD ONLY) 10 ML IV (19:58)
[2024-12-30] MEDS: IOPAMIDOL-370 (76%);100ML BOTTLE 75 ML IV (19:58)
[2024-12-30 20:15] LABS: Lipase 43 U/L (23-300)
[2024-12-30 20:16] LABS: Magnesium 2.1 mg/dl (1.6-2.3)
[2024-12-30 22:02] VITALS: BP 175/84; PULSE 52; RESP 20; TEMP 36.6; O2SAT 98
[2024-12-30 22:13] LABS: Troponin I < 0.01 ng/ml (0.00-0.034)
== END 2024-12-30 22:03 | disposition home or self-care (01) ==
PROVIDERS: Nurse Practitioner; Emergency Provider Student in an Organized Health Care Education/Training Program; PCP Family Medicine
DX: R10.84 Generalized abdominal pain (principal); R20.0 Anesthesia of skin; I10 Essential (primary) hypertension
CPT/HCPCS: 71045; 74021; 74177; 80053; 81001; 83690; 83735; 84484; 85025; 96374; 99283; 99285; Q9967

== ENCOUNTER 2025-01-10 13:07 | Outpatient (CLI) | payer MEDICARE, OTHER, SELFPAY ==
--- OUTSIDE RECORDS SUMMARY | 2025-01-10 13:15 | XMS_ITS | Clinical Summary ---
Author Organization [employer] ([place], [place], [place], [place]) Address [address] [place] [address] Care Team Providers Care Administration Professional Name Role Phone Sonia Barlow DO Primary Care Provider [phone] Allergies No known active allergies Medications carvediloL (COREG) 12.5 MG tablet Take 1 tablet (12.5 mg total) by mouth 2 (two) times daily. 01/21/20 Active furosemide (LASIX) 20 MG tablet Take 1 tablet (20 mg total) by mouth daily. 02/16/20 Active losartan (COZAAR) 25 MG tablet Take 1 tablet (25 mg total) by mouth daily. 02/16/20 Active spironolactone (ALDACTONE) 25 MG tablet Take by mouth. 02/17/20 Active aspirin 81 MG EC tablet Take 1 tablet (81 mg total) by mouth daily. Active docusate sodium (COLACE) 100 MG capsule Take 1 capsule (100 mg total) by mouth 2 (two) times daily. Active POTASSIUM ACETATE MISC 99 mg by Miscellaneous route daily. Active cyanocobalamin (VITAMIN B-12) 100 MCG tablet Take 1 tablet (100 mcg total) by mouth daily. Active cholecalciferol, vitamin D3, 50 mcg (2,000 unit) Cap Take by mouth. Active ascorbic acid, vitamin C, (VITAMIN C) 100 MG tablet Take 1 tablet (100 mg total) by mouth daily. Active B comp ug1-ynftx-C-biotin -zinc 1-60-300-12.5 ww-ql-hyk-mg Tab Take 1 tablet by mouth daily. Active b complex vitamins tablet Take 1 tablet by mouth daily. Active biotin 1 mg tablet Take 1,000 mcg by mouth 3 (three) times daily. Active vit C/Zn gluc/herbal no.325 (ELDERBERRY ZINC VIT C MM) by Mucous Membrane route. Active DULoxetine (CYMBALTA) 30 MG capsuleIndications :Fibromyalgia Take 1 capsule (30 mg total) by mouth daily. 30 capsule 5 02/04/20 23 Active gabapentin (NEURONTIN) 400 MG capsuleIndications :Fibromyalgia Take 1 capsule (400 mg total) by mouth 2 (two) times daily. 60 capsule 5 02/04/20 23 Active cyclobenzaprine (FLEXERIL) 10 MG tabletIndications: Fibromyalgia Take 1 tablet (10 mg total) by mouth 2 (two) times daily as needed. 60 tablet 5 02/04/20 Active meloxicam (MOBIC) 7.5 MG tabletIndications: Osteoarthritis of both knees, unspecified osteoarthritis type,Osteoarthriti s of right knee, unspecified osteoarthritis type TAKE 1 TABLET(7.5 MG) BY MOUTH IN THE MORNING 30 tablet 2 04/06/20 Active Active Problems Problem Noted Date Diagnosed Date Encounter for general adult medical examination without abnormal findings 08/30/2022 Encounter for therapeutic drug level monitoring 2021 Fibromyalgia 2021 Osteoarthritis 2021 Vitamin D deficiency 2021 Synovial cyst of right knee 09/04/2020 Cloudy urine 03/06/2020 Low back pain 03/06/2020 Immunizations Immunization Administration Dates Next Due Influenza Four-qiv Pf 01/10/2020,02/02/2018,05/28 SHINGLES VARICELLA (ZOSTAVAX) ZOSTER 06/10/2016 Social History Tobacco Use Types Packs/Day Years Used Date Smoking Tobacco: Never Smokeless Tobacco: Never Tobacco Cessation:Counseling Given: Not Answered Alcohol Use Standard Drinks/Week Comments Not Currently 0 (1 standard drink = 0.6 oz pur e alcohol) Food Insecurity Answer Date Recorded Food run out past 12 months Not on file 04/27 Food did not last past 12 months Not on file 05/09/2023 Employment Answer Date Recorded Help finding and keeping a job Not on file 0 05/09/2023 Family and Community Support Answer Isaac e Recorded Help with Day to Day Activities Not on file 05/09/2023 Feeling Lonely or Isolated Not on file 05/09 Educational Attainment Answer Date Castro rded Speak language other than Sammarinese at home Not on file 05/09/2023 Want help with school or training Not on file 05/09/2023 Substance Use Answer Date Recorded Used prescription meds for non-medical reasons N ot on file 05/09/2023 Used illegal drugs past 12 months Not on file 05/09/2023 Comments Unknown Sex and Gender Information Value Date Recorded Sex Assigned at Not on file Legal Sex Female 5:36 PM CDT Gender Identity Not on file Sexual Orientation Not on file Last Filed Vital Signs Vital Sign Reading Time Taken Comments Blood Pressure 110/72 02/03/2023 1:03 PM EDT Pulse 65 02/03/2023 1:03 PM EDT Temperature 36.4 C (97.6 F) 09/08/2022 1:10 PM EDT Respiratory Rate 18 02/03/2023 1:03 PM EDT Oxygen Saturation 91% 02/03/2023 1:03 PM EDT Inhaled Oxygen Concentration - - Weight 103.3 kg (227 lb 12.8 oz) 02/03/2023 1:03 PM EDT Height 165.1 cm (5' 5 ) 02/03/2023 1:03 PM EDT Body Mass Index 37.91 02/03/2023 1:03 PM EDT Plan of Treatment Health Maintenance Due Date Last Done Comments Medicare Initial AWV [id number] CT Colonography 1955 Colonoscopy 1956 Colorectal Cancer Screening 1956 DXA SCAN 1956 FOBT/FIT 1956 Fit-DNA (Cologuard) 1956 Sigmoidoscopy 1956 Depression Screening (12+) 1968 Hepatitis C Screening 1974 DTAP/TDAP/TD VACCINES (1 - Tdap) 1975 Breast Cancer Screening 1996 Pneumococcal 50+ years (1 of 1 - PCV) 2006 Shingles Vaccine (Zoster) (2 of 2) 08/05/20162016 Tobacco Cessation Counseling and Screening (12+) 02/04/2024 02/03/2023 Falls Risk Screening 04/27/2024 COVID-19 VACCINE (3 - 2025-26 season) 2024, 09/06/2020 Influenza Vaccine (#1) 2024 Respiratory Syncytial Virus (RSV) Adult or (1 - 1-dose 75+ series) 2031 Insurance MEDICARE PART A B Care Teams Administration Professional Relationship Specialty Start Date End Date Sonia Barlow, DO [address] [place] [address] PCP - General Family Medicine 03/11/22
--- OUTSIDE RECORDS SUMMARY | 2025-01-10 13:15 | XMS_ITS | Encounter Summary ---
Author Organization [employer] ([place], [place], [place], [place]) Address [address] [place] [address] Care Team Providers Care Sheet Metal Duct Installer Apprentice Name Role Phone Sonia Barlow DO Primary Care Provider [phone] Reason for Visit * Reason Comments Medication Refill Encounter Details Date Type Department Care Team (Late st Contact Info) Description 04/02/[address]23 [address] [facility] Rheumatology [address] [facility] [address] [place] [address] Valerie Bernard MD [address] [facility] [address] [place] [address] Osteoarthritis of both knees, unspecified osteoarthritis type; Osteoarthritis of right knee, unspecified osteoarthritis type Social History Tobacco Use Types Packs/Day Years Used Date Smoking Tobacco: Never Smokeless Tobacco: Never Alcohol Use Standard [...] as of this encounter Visit Diagnoses Diagnosis Osteoarthritis of both knees, unspecified osteoarthritis type Osteoarthritis of right knee, unspecified osteoarthritis type documented in this encounter Care Teams Sheet Metal Duct Installer Apprentice Relationship Specialty Start Date End Date Sonia Barlow DO [address] [facility] [address] [place] [address] PCP - General Family Medicine 03/11/22 documented as of this encounter
--- OUTSIDE RECORDS SUMMARY | 2025-01-10 13:15 | XMS_ITS | Clinical Summary ---
Author Organization Healthcare Address [address] [place] [address] Care Team Providers Care Bundle Cutter Name Role Phone Ary Pratt MD Primary Care Provider [phone] Swapnil Garcia MD Unavailable [phone] Allergies Active Allergy Reactions Criticality Noted Date [...] [facility]Y-Zoster Vaccines (2 of 3) 08/05/2016 06/10/2016 [id number] Vaccine (3 - season) 2024 04/23/2021, 09/06/2020 [facility]Y-Influenza Vaccine (#1) 12/26/202401/09, 02/02/2018, [...] Insurance MEDICARE [facility] Care Teams Bundle Cutter Relationship Specialty Start Date End Date Ary Pratt MD [address] [place] [address] PCP - General 09/07/20 Swapnil Garcia MD [address] [facility] [address] [place] [address] Surgeon Neurosurgery 05/22/22
--- OUTSIDE RECORDS SUMMARY | 2025-01-10 13:15 | XMS_ITS | Encounter Summary ---
Author Organization [employer] ([place], [place], [place], [place]) Address [address] [place] [address] Care Team Providers Care Gin Inspector Name Role Phone Sonia Barlow DO Primary Care Provider Reason for Visit * Reason Comments Medication Refill Encounter Details Date Type Department Care Team (Late st Contact Info) Description 12/31/2022 Refill [facility] Rheumatology [address] [place] [address] Valerie Bernard MD [address] [facility] [address] [place] [address] Fibromyalgia Social History Tobacco Use Types Packs/Day Years [...] as of this encounter Visit Diagnoses Diagnosis Fibromyalgia Unspecified myalgia and myositis documented in this encounter Care Teams Gin Inspector Relationship Specialty Start Date End Date Sonia Barlow DO [address] [facility] [address] [place] [address] PCP - General Family Medicine 03/11/22 documented as of this encounter
--- OUTSIDE RECORDS SUMMARY | 2025-01-10 13:15 | XMS_ITS | Encounter Summary ---
Author Organization [facility] y[facility] Address [address] [place] [address] Care Team Providers Care Drill Doctor Name Role Phone Sonia Barlow Primary Care Provider [phone] Reason for Visit * Reason Comments Med Refill Encounter Details Date Type Department Care Team (Late st Contact Info) Description 11/07/2023 Refill [facility] CARDIOLOGY [address] [address] Tierra Hurtado, RAILROAD POLICE OFFICER [address] [place] [address] Med Refill Social History Tobacco Use Types [...] Description 02/20/2025 1:30 PM EDT Ancillary Procedure [facility] [address] [address] 02/20/2025 2:15 PM EDT Office Visit [facility] [address] [address] [address] Romero MD [address] [address] documented as of this encounter Visit Diagnoses Not on filedocumented in this encounter Care Teams Drill Doctor Relationship Specialty Start Date End Date Sonia Barlow DO [facility] [place] [address] PCP - General Family Medicine 05/08/23 documented as of this encounter
--- OUTSIDE RECORDS SUMMARY | 2025-01-10 13:15 | XMS_ITS | Encounter Summary ---
Author Organization [employer] ([place], [place], [place], [place]) Address [address] [place] [address] Care Team Providers Care X Ray Technologist Name Role Phone Sonia Barlow DO Primary Care Provider [phone] Reason for Visit * Reason Comments Medication Refill Encounter Details Date Type Department Care Team (Late st Contact Info) Description 08/29/2023 Refill [facility] Rheumatology [address] [place] [address] Valerie Bernard MD 101 [facility] [address] [place] [address] Fibromyalgia Social History Tobacco Use Types Packs/Day [...] Date Castro rded Speak language other than Armenian at home Not on file 05/09/2023 Want [...] myositis documented in this encounter Care Teams X Ray Technologist Relationship Specialty Start Date End Date Sonia Barlow, 8 [facility] [address] [place] [address] PCP - General Family Medicine 03/11/22 documented as of this encounter
--- OUTSIDE RECORDS SUMMARY | 2025-01-10 13:15 | XMS_ITS | Encounter Summary ---
Author Organization [email or web address] ([place], [place], [place], [place]) Address [address] [place] [address] Care Team Providers Care Superintendent Pipelines Name Role Phone Sonia Barlow DO Primary Care Provider [phone] Reason for Visit * Reason Comments Medication Refill Encounter Details Date Type Department Care Team (Late st Contact Info) Description 08/22/2023 Refill [facility] Rheumatology [address] [place] [address] Valerie Bernard MD 101 [facility] [address] [place] [address] Fibromyalgia Social History Tobacco Use Types Packs/Day [...] Date Castro rded Speak language other than Chinese at home Not on file 05/09/2023 Want [...] myositis documented in this encounter Care Teams Superintendent Pipelines Relationship Specialty Start Date End Date Sonia Barlow, 8 [facility] [address] [place] [address] PCP - General Family Medicine 03/11/22 documented as of this encounter
--- OUTSIDE RECORDS SUMMARY | 2025-01-10 13:15 | XMS_ITS | Encounter Summary ---
Author Organization [email or web address] ([place], [place], [place], [place]) Address [address] [place] [address] Care Team Providers Care Policy Manager Name Role Phone Sonia Barlow DO Primary Care Provider [phone] Reason for Visit * Reason Comments Medication Refill Encounter Details Date Type Department Care Team (Late st Contact Info) Description 06/27/2023 Refill [facility] Rheumatology [address] [place] [address] Valerie Bernard MD 101 [facility] [address] [place] [address] Osteoarthritis of both knees, unspecified osteoarthritis type; [...] Date Castro rded Speak language other than Bhutanese at home Not on file 05/09/2023 Want [...] type documented in this encounter Care Teams Policy Manager Relationship Specialty Start Date End Date Sonia Barlow DO 8 [facility] [address] [place] [address] PCP - General Family Medicine 03/11/22 documented as of this encounter
--- OUTSIDE RECORDS SUMMARY | 2025-01-10 13:15 | XMS_ITS | Referral Summary ---
Author Organization [employer] ([place], [place], [place], [place]) Address [address] [place] [address] Care Team Providers Care Tariff Counsel Name Role Phone Sonia Barlow DO Primary Care Provider [phone] Allergies No known active allergies Medications carvediloL [...] total) by mouth daily. Active B comp va3-uvbfo-A-biotin -zinc 1-60-300-12.5 wh-ff-rvg-mg Tab Take 1 tablet by mouth daily. [...] Date Castro rded Speak language other than South African at home Not on file 05/09/2023 Want [...] 02/03/2023 1:03 PM EDT Plan of Treatment Not on file Insurance MEDICARE PART A B Care Teams Tariff Counsel Relationship Specialty Start Date End Date Sonia Barlow, [address] [place] [address] PCP - General Family Medicine 03/11/22
--- OUTSIDE RECORDS SUMMARY | 2025-01-10 13:15 | XMS_ITS | Encounter Summary ---
Author Organization [employer] ([place], [place], [place], [place]) Address [address] [place] [address] Care Team Providers Care Retail Sales Professional Name Role Phone Sonia Barlow DO Primary Care Provider Reason for Visit * Reason Comments Medication Refill Encounter Details Date Type Department Care Team (Late st Contact Info) Description 09/18/2022 Refill [facility] Rheumatology [address] [place] [address] Valerie Bernard MD 101 [facility] [address] [place] [address] Fibromyalgia Social History Tobacco Use Types Packs/Day [...] myositis documented in this encounter Care Teams Retail Sales Professional Relationship Specialty Start Date End Date Sonia Barlow DO 8 [facility] [address] [place] [address] PCP - General Family Medicine 03/11/22 documented as of this encounter
--- OUTSIDE RECORDS SUMMARY | 2025-01-10 13:16 | XMS_ITS | Encounter Summary ---
Author Organization [facility] Address [address] [place] [address] Care Team Providers Care Rock Climbing Team Member Name Role Phone Ary Pratt MD Primary Care Provider [phone] Swapnil Garcia MD Unavailable [phone] Reason for Referral * Consultation (Routine) - Closed Specialty Diagnoses / Procedures Referred By Contac t Referred To Contact Neurosurgery Diagnoses Benign meningioma (CMS/HCC) Katelin Whitten APRN [address] [place] [phone] Phone: tel: fax: Referral ID Status Reason Start Date Expiration Date V isits Requested Visits Authorized [id number] Closed Specialty Services Required 05/05/2022 11/04/2023 1 1 Encounter Details Date Type Department Care Team (Late st Contact Info) Description 05/05/2022 [facility] [address] [place] [address] Katelin Whitten APRN [address] [place] [address] Benign meningioma (CMS/HCC) (Primary Dx) [...] meninges documented in this encounter Care Teams Rock Climbing Team Member Relationship Specialty Start Date End Date Ary Pratt MD [address] [place] [address] PCP - General 09/07/20 Swapnil Garcia MD [address] [facility] [address] [place] [address] Surgeon Neurosurgery 05/22/22 documented as of this encounter
--- OUTSIDE RECORDS SUMMARY | 2025-01-10 13:16 | XMS_ITS | Encounter Summary ---
Author Organization [facility] Address [address] [place] [address] Care Team Providers Care Heel Top Lift Splitter Name Role Phone Ary Pratt MD Primary Care Provider [phone] Swapnil Garcia MD Unavailable [phone] Encounter Details Date Type Department Care Team (Late st Contact Info) Description 03/24/2022 Community [facility] [address] [place] [address] Katelin Whitten, CONCRETE BUSTER OPERATOR [address] [place] [address] Benign neoplasm of meninges (CMS/HCC) (Primary Dx) [...] meninges documented in this encounter Care Teams Heel Top Lift Splitter Relationship Specialty Start Date End Date Ary Pratt MD [address] [place] [address] PCP - General 09/07/20 Swapnil Garcia MD [address] [place] [address] Surgeon Neurosurgery 05/22/22 documented as of this encounter
--- OUTSIDE RECORDS SUMMARY | 2025-01-10 13:16 | XMS_ITS | Clinical Summary ---
Author Organization [facility] Address [address] [place] [address] Care Team Providers Care Nephrologist Name Role Phone Sonia Barlowgh Primary Care Provider [phone] Allergies Active Allergy Reactions Criticality Noted Date [...] Description 02/20/2025 1:30 PM EDT Ancillary Procedure [facility] CARDIOLOGY [address] [address] 02/20/2025 2:15 PM EDT Office Visit [facility] CARDI[facility]Y [address] [...] Hemoglobin A1C 6.2(H) 4.00 - 6.00 % [facility] Comment: DF by IF @ 10/30/2014 14:52 The [place] Diabetes Association recommends maintenance of Hemoglobin A1C at 7.0% or lower. Goals for Hemoglobin A1C reduction may need to be modified if hypoglycemia is a problem. Mean Bld Glu Estim. 126 mg/dL [facility] Blood specimen (specimen) 10/30/2014 2:00 PM EDT Narrative [facility] - 10/30/2014 2:52 PM EDT Specimen Type: Blood Swapnil Jorge Jr., MD LAB BLOOD ORDERABLE S Final Result [facility] [address] [place] [address], [place] [phone] from Last 3 Months or Most Recently Relevant to Health Maintenance Insurance MEDICARE A & B Member Subscriber Plan / Payer (Ef fective 2016-Present) Name:Staci Beauchamp Member ID:[id number] Relation to Subscriber:Self Name:Staci Beauchamp Subscriber ID:[id number] Payer ID:[id number] Group ID:Not on file Type:Not on file Address: [facility] [id number] Care Teams Nephrologist Relationship Specialty Start Date End Date Sonia Barlow DO [address] [place] [address] PCP - General Family Medicine 05/08/23
--- NOTE | 2025-01-10 13:28 | XR_ITS ---
FINAL REPORT CLINICAL HISTORY: Pain x 4 weeks COMPARISON: None FINDINGS: 2 views of the thoracic spine were obtained. No fracture is seen. Alignment is normal. Mild degenerative spurring and disc space narrowing. IMPRESSION: Degenerative changes without acute bony abnormality. Reviewed, Interpreted and Dictated by Kenn Castillo MD Transcribed by Laura Marin Authenticated and [facility]
--- NOTE | 2025-01-10 13:28 | XR_ITS ---
FINAL REPORT CLINICAL HISTORY: T-spine numbness...pain x 4 weeks COMPARISON: None FINDINGS: 2 views of the lumbosacral spine were obtained. No fracture is identified. Mild disc space narrowing. Moderate facet arthropathy in the lower lumbar spine. Alignment is normal. IMPRESSION: Degenerative changes without acute bony abnormality. Reviewed, Interpreted and Dictated by Kenn Castillo MD Transcribed by Laura Marin Authenticated and [facility]
[2025-01-10 15:11] LABS: Vitamin B12 > 1000 pg/mL (239-931)
== END 2025-01-10 23:59 | disposition home or self-care (01) ==
LOC: LAB 13:12
PROVIDERS: PCP Family Medicine; Visit Provider Specialist
DX: M47.814 Spondylosis without myelopathy or radiculopathy, thoracic region (principal); M47.817 Spondylosis without myelopathy or radiculopathy, lumbosacral region; E22.0 Acromegaly and pituitary gigantism; G99.2 Myelopathy in diseases classified elsewhere; G63 Polyneuropathy in diseases classified elsewhere
CPT/HCPCS: 36415; 72070; 72100; 82607

== ENCOUNTER 2025-01-11 10:45 | Outpatient (CLI) | payer MEDICARE, OTHER, SELFPAY ==
--- OUTSIDE RECORDS SUMMARY | 2025-01-11 10:51 | XMS_ITS | Clinical Summary ---
Author Organization [employer] ([place], [place], [place], [place]) Address [address] [place] [address] Care Team Providers Care Steel Box Toe Inserter Name Role Phone Sonia Barlow DO Primary Care Provider [phone] Allergies No known active allergies Medications carvediloL [...] total) by mouth daily. Active B comp oo2-jejvd-Y-biotin -zinc 1-60-300-12.5 di-tt-ono-mg Tab Take 1 tablet by mouth daily. [...] Date Castro rded Speak language other than Venezuelan at home Not on file 05/09/2023 Want [...] Insurance MEDICARE PART A B Care Teams Steel Box Toe Inserter Relationship Specialty Start Date End Date Sonia Barlow, DO [address] [place] [address] PCP - General Family Medicine 03/11/22
--- OUTSIDE RECORDS SUMMARY | 2025-01-11 10:51 | XMS_ITS | Clinical Summary ---
Author Organization [facility] Address [address] [place] [address] Care Team Providers Care Chair Pad Maker Name Role Phone Ary Pratt MD Primary Care Provider [phone] Swapnil Garcia MD Unavailable [phone] Allergies Active Allergy Reactions Criticality Noted Date [...] UKY-Zoster Vaccines (2 of 3) 08/05/2016 06/10/2016 [id number] Vaccine (3 - season) 2024 04/23/2021, 09/06/2020 [...] age to complete this topic Insurance MEDICARE [facility] Care Teams Chair Pad Maker Relationship Specialty Start Date End Date Ary Pratt MD [address] [place] [address] PCP - General 09/07/20 Swapnil Garcia MD [address] [facility] [address] [place] [address] Surgeon Neurosurgery 05/22/22
--- OUTSIDE RECORDS SUMMARY | 2025-01-11 10:52 | XMS_ITS | Clinical Summary ---
Author Organization [facility] Address [address] [place] [address] Care Team Providers Care Shellfish Shucker Name Role Phone Sonia Barlowgh Primary Care Provider [phone] Allergies Active Allergy Reactions Criticality Noted Date [...] Description 02/20/2025 1:30 PM EDT Ancillary Procedure [facility] CARD[facility] [address] [address] 02/20/2025 2:15 PM EDT Office Visit [facility] [address] [address] [address] [...] Hemoglobin A1C 6.2(H) 4.00 - 6.00 % [facility] Comment: DF by IF @ 10/30/2014 14:52 The [place] Diabetes Association recommends maintenance of Hemoglobin A1C at 7.0% or lower. Goals for Hemoglobin A1C reduction may need to be modified if hypoglycemia is a problem. Mean Bld Glu Estim. 126 mg/dL [facility] Blood specimen (specimen) 10/30/2014 2:00 PM EDT Narrative [facility] - 10/30/2014 2:52 PM EDT Specimen Type: Blood Swapnil Jorge Jr., MD LAB BLOOD ORDERABLE S Final Result [facility] [address] [place] [address], [place] [phone] from Last 3 Months or Most Recently Relevant to Health Maintenance Insurance MEDICARE A & B Member Subscriber Plan / Payer (Ef fective 2016-Present) Name:Staci Beauchamp Member ID:[id number] Relation to Subscriber:Self Name:Staci Beauchamp Subscriber ID:[id number] Payer ID:[id number] Group ID:Not on file Type:Not on file Address: [facility] [id number] Care Teams Shellfish Shucker Relationship Specialty Start Date End Date Sonia Barlow DO [address] [place] [address] PCP - General Family Medicine 05/08/23
--- OUTSIDE RECORDS SUMMARY | 2025-01-11 10:52 | XMS_ITS | Referral Summary ---
Author Organization [employer] ([place], [place], [place], [place]) Address [address] [place] [address] Care Team Providers Care Box Covering Machine Operator Name Role Phone Sonia Barlow DO Primary Care Provider [phone] Allergies No known active allergies Medications carvediloL [...] total) by mouth daily. Active B comp ab7-nulqr-B-biotin -zinc 1-60-300-12.5 pv-do-bnc-mg Tab Take 1 tablet by mouth daily. [...] Date Castro rded Speak language other than Citizen Of [place] at home Not on file 05/09/2023 Want [...] Insurance MEDICARE PART A B Care Teams Box Covering Machine Operator Relationship Specialty Start Date End Date Sonia Barlow, [address] [place] [address] PCP - General Family Medicine 03/11/22
--- OUTSIDE RECORDS SUMMARY | 2025-01-11 10:52 | XMS_ITS | Patient Health Record ---
Author Organization [facility] Address [address] [place] [address] Care Team Providers Care Kiln Labourer Name Role Phone SHELTON PAGE Primary Care Provider [phone] Reason For Referral No Information Medications Medication [...] Status W/U Status Risk Notes Problem Spasm (20608706) Spasm of muscle (728.85) Active confirmed Blane-Bin Problem Muscle pain (65885160) Unspecified myalgia and myositis (729.1) Active confirmed Blane-Bin Problem Major depression, single episode (07095366) Major depressive disorder, single episode, unspecified (F32.9) Active confirmed Blane-Bin Problem Generalized anxiety disorder (49100443) Generalized anxiety disorder (F41.1) Active confirmed Blane-Bin Problem Essential hypertension (91813769) Essential (primary) hypertension (I10) Active confirmed Blane-Bin Problem 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
--- OUTSIDE RECORDS SUMMARY | 2025-01-11 10:52 | XMS_ITS | Encounter Summary ---
Author Organization [facility] Address [address] [place] [address] Care Team Providers Care Mining Captain Name Role Phone Sonia Barlow Primary Care Provider [phone] Reason for Visit * Reason Comments Med Refill Encounter Details Date Type Department Care Team (Late st Contact Info) Description 11/07/[address] [facility] CARDIOLOGY [address] [address] Tierra Hurtado, GARDENER FLORIST [address] [place] [address] Med Refill Social History Tobacco Use Types [...] 1:30 PM EDT Ancillary Procedure [facility] [address] [address] 02/20/2025 2:15 PM EDT Office Visit [facility] [address] [address] [address] Romero MD [address] [address] documented as of this encounter Visit Diagnoses Not on filedocumented in this encounter Care Teams Mining Captain Relationship Specialty Start Date End Date Sonia Barlow DO [facility] [place] [address] PCP - General Family Medicine 05/08/23 documented as of this encounter
--- OUTSIDE RECORDS SUMMARY | 2025-01-11 10:52 | XMS_ITS | Encounter Summary ---
Author Organization [employer] ([place], [place], [place], [place]) Address [address] [place] [address] Care Team Providers Care Chief Of Staff Name Role Phone Sonia Barlow DO Primary Care Provider Reason for Visit * Reason Comments Medication Refill Encounter Details Date Type Department Care Team (Late st Contact Info) Description 09/18/2022 Refill [facility] Rheumatology [address] [place] [address] Valerie Bernard MD [address] [facility] [address] [place] [address] Fibromyalgia Social History Tobacco Use Types Packs/Day [...] myositis documented in this encounter Care Teams Chief Of Staff Relationship Specialty Start Date End Date Sonia Barlow DO 8 [facility] [address] [place] [address] PCP - General Family Medicine 03/11/22 documented as of this encounter
--- OUTSIDE RECORDS SUMMARY | 2025-01-11 10:52 | XMS_ITS | Encounter Summary ---
Author Organization [facility] Address [address] [place] [address] Care Team Providers Care Casing Operator Name Role Phone Ary Pratt MD Primary Care Provider [phone] Swapnil Garcia MD Unavailable [phone] Encounter Details Date Type Department Care Team (Late st Contact Info) Description 03/24/2022 [facility] [address] [place] [address] Katelin Whitten, EXECUTIVE STEWARD [address] [place] [address] Benign neoplasm of meninges (CMS/HCC) (Primary Dx) [...] meninges documented in this encounter Care Teams Casing Operator Relationship Specialty Start Date End Date Ary Pratt MD [address] [place] [address] PCP - General 09/07/20 Swapnil Garcia MD [address] [place] [address] Surgeon Neurosurgery 05/22/22 documented as of this encounter
--- OUTSIDE RECORDS SUMMARY | 2025-01-11 10:52 | XMS_ITS | Encounter Summary ---
Author Organization [employer] ([place], [place], [place], [place]) Address [address] [place] [address] Care Team Providers Care Taper/Finisher Name Role Phone Sonia Barlow DO Primary Care Provider Reason for Visit * Reason Comments Medication Refill Encounter Details Date Type Department Care Team (Late st Contact Info) Description 08/29/2023 Refill [facility] Rheumatology [address] [place] [address] Valerie Bernard MD [address] [facility] [address] [place] [address] Fibromyalgia Social History Tobacco Use Types Packs/Day [...] Date Castro rded Speak language other than Danish at home Not on file 05/09/2023 Want [...] myositis documented in this encounter Care Teams Taper/Finisher Relationship Specialty Start Date End Date Sonia Barlow, 8 [facility] [address] [place] [address] PCP - General Family Medicine 03/11/22 documented as of this encounter
--- OUTSIDE RECORDS SUMMARY | 2025-01-11 10:52 | XMS_ITS | Encounter Summary ---
Author Organization [employer] ([place], [place], [place], [place]) Address [address] [place] [address] Care Team Providers Care Oracle Apex Developer Name Role Phone Sonia Barlow DO Primary Care Provider Reason for Visit * Reason Comments Medication Refill Encounter Details Date Type Department Care Team (Late st Contact Info) Description 12/31/2022 Refill [facility] Rheumatology [address] [place] [address] Valerie Bernard MD [address] [facility] [address] [place] [address] Fibromyalgia Social History Tobacco Use Types Packs/Day [...] myositis documented in this encounter Care Teams Oracle Apex Developer Relationship Specialty Start Date End Date Sonia Barlow DO 8 [facility] [address] [place] [address] PCP - General Family Medicine 03/11/22 documented as of this encounter
--- OUTSIDE RECORDS SUMMARY | 2025-01-11 10:52 | XMS_ITS | Encounter Summary ---
Author Organization [email or web address] ([place], [place], [place], [place]) Address [address] [place] [address] Care Team Providers Care Healthcare Corporate Account Director Name Role Phone Sonia Barlow DO Primary Care Provider [phone] Reason for Visit * Reason Comments Medication Refill Encounter Details Date Type Department Care Team (Late st Contact Info) Description 04/02/2023 Refill [facility] Rheumatology [address] [facility] [address] [place] [address] Valerie Bernard MD [address] [facility] [address] [place] [address] Osteoarthritis of both knees, unspecified osteoarthritis type; [...] type documented in this encounter Care Teams Healthcare Corporate Account Director Relationship Specialty Start Date End Date Sonia Barlow DO [address] [facility] [address] [place] [address] PCP - General Family Medicine 03/11/22 documented as of this encounter
--- OUTSIDE RECORDS SUMMARY | 2025-01-11 10:52 | XMS_ITS | Encounter Summary ---
Author Organization [employer] ([place], [place], [place], [place]) Address [address] [place] [address] Care Team Providers Care Aquaculture Farmer Name Role Phone Sonia Barlow DO Primary Care Provider [phone] Reason for Visit * Reason Comments Medication Refill Encounter Details Date Type Department Care Team (Late st Contact Info) Description 08/22/2023 Refill [facility] Rheumatology [address] [place] [address] Valerie Bernard MD [address] [facility] [address] [place] [address] Fibromyalgia Social History Tobacco Use Types Packs/Day [...] Date Castro rded Speak language other than Greek at home Not on file 05/09/2023 Want [...] myositis documented in this encounter Care Teams Aquaculture Farmer Relationship Specialty Start Date End Date Sonia Barlow, 8 [facility] [address] [place] [address] PCP - General Family Medicine 03/11/22 documented as of this encounter
--- OUTSIDE RECORDS SUMMARY | 2025-01-11 10:52 | XMS_ITS | Encounter Summary ---
Author Organization [employer] ([place], [place], [place], [place]) Address [address] [place] [address] Care Team Providers Care Lie Detector Operator Name Role Phone Sonia Barlow DO Primary Care Provider [phone] Reason for Visit * Reason Comments Medication Refill Encounter Details Date Type Department Care Team (Late st Contact Info) Description 06/27/2023 Refill [facility] Rheumatology [address] [place] [address] Valerie Bernard MD 101 [facility] [address] [place] [address] Osteoarthritis of both knees, unspecified osteoarthritis type; [...] Date Castro rded Speak language other than Jamaican at home Not on file 05/09/2023 Want [...] type documented in this encounter Care Teams Lie Detector Operator Relationship Specialty Start Date End Date Sonia Barlow DO 8 [facility] [address] [place] [address] PCP - General Family Medicine 03/11/22 documented as of this encounter
--- OUTSIDE RECORDS SUMMARY | 2025-01-11 10:52 | XMS_ITS | Encounter Summary ---
Author Organization [facility] Address [address] [place] [address] Care Team Providers Care Honey Liquefier Name Role Phone Ary Pratt MD Primary Care Provider [phone] Swapnil Garcia MD Unavailable [phone] Reason for Referral * Consultation (Routine) - Closed Specialty Diagnoses / Procedures Referred By Contac t Referred To Contact Neurosurgery Diagnoses Benign meningioma (CMS/HCC) Katelin Whitten APRN [address] [place] [id number] Phone: tel: fax: Referral ID Status Reason Start Date Expiration Date V isits Requested Visits Authorized [id number] Closed Specialty Services Required 05/05/2022 11/04/2023 1 1 Encounter Details Date Type Department Care Team (Late st Contact Info) Description 05/05/2022 Community [facility] [address] [place] [address] Katelin Whitten APRN [address] [place] [address] Benign meningioma (CMS/HCC) (Primary Dx) [...] meninges documented in this encounter Care Teams Honey Liquefier Relationship Specialty Start Date End Date Ary Pratt MD [address] [place] [address] PCP - General 09/07/20 Swapnil Garcia MD [address] [facility] [address] [place] [id number] Surgeon Neurosurgery 05/22/22 documented as of this encounter
--- NOTE | 2025-01-11 11:00 | MR_ITS ---
FINAL REPORT CLINICAL HISTORY: Transverse myelitis, spinal cord compression. RIGHT SIDED BACK PAIN. NUMBNESS FROM STOMACH DOWN. BILATERAL LEG NUMBNESS. COMPARISON: none FINDINGS: MRI THORACIC SPINE, WITHOUT AND WITH CONTRAST TECHNIQUE: Multiplanar MR without and with contrast administration. FINDINGS: There is a large extradural mass in the spinal canal at the T4 level. The mass measures 22 mm in height by 14 mm in AP dimension by 13 mm with and severely compresses the spinal canal. Differential considerations include nerve sheath tumor as well as meningioma. Malignant lesion considered much less likely. No other canal lesions identified. No evidence of bony erosion. Vertebrae are normal in height. Marrow signal is normal. There are no significant degenerative changes. 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 Reviewed, Interpreted and Dictated by Kenn Castillo MD Transcribed by Laura Marin Authenticated and [facility]
[2025-01-11] MEDS: SODIUM CHLORIDE 0.9% 10ML SYR (RAD ONLY) 10 ML IV (11:39)
[2025-01-11] MEDS: GADOTERIDOL INJ 20ML SYRINGE 18 ML IV (11:39)
--- NOTE | 2025-01-11 14:22 | HMH.ITSTN ---
Dr Meredith requests that patient goes to the emergency room following her mri to await official radiologist report and possible transfer. I spoke with Kenn Cook RN in the ER to relay this information. Patient taken to ER after scan via wheelchair.
== END 2025-01-11 23:59 | disposition home or self-care (01) ==
LOC: RAD 10:46
PROVIDERS: PCP Family Medicine; Visit Provider Specialist
DX: G95.29 Other cord compression (principal); G37.3 Acute transverse myelitis in demyelinating disease of central nervous system; G62.9 Polyneuropathy, unspecified; G99.2 Myelopathy in diseases classified elsewhere
CPT/HCPCS: 72157; A9576

== ENCOUNTER 2025-01-11 11:56 | Emergency (ER) | payer MEDICARE, OTHER, SELFPAY ==
[2025-01-11 12:00] VITALS: BP 114/63; PULSE 61; RESP 18; TEMP 36.6; O2SAT 97; BMI 34.4
--- OUTSIDE RECORDS SUMMARY | 2025-01-11 12:17 | XMS_ITS | Encounter Summary ---
Author Organization [employer] ([place], [place], [place], [place]) Address [address] [place] [address] Care Team Providers Care Woolen Suiting Shrinker Name Role Phone Sonia Barlow DO Primary Care Provider Reason for Visit * Reason Comments Medication Refill Encounter Details Date Type Department Care Team (Late st Contact Info) Description 09/18/2022 Refill [facility] Rheumatology [address] [place] [address] Valerie Bernard MD [address] [facility] [address] [place] [address] Fibromyalgia Social History Tobacco Use Types Packs/Day [...] myositis documented in this encounter Care Teams Woolen Suiting Shrinker Relationship Specialty Start Date End Date Sonia Barlow DO 8 [facility] [address] [place] [address] PCP - General Family Medicine 03/11/22 documented as of this encounter
--- OUTSIDE RECORDS SUMMARY | 2025-01-11 12:17 | XMS_ITS | Clinical Summary ---
Author Organization [facility] Address [address] [place] [address] Care Team Providers Care Punchboard Stuffer Name Role Phone Ary Pratt MD Primary Care Provider [phone] Swapnil Garcia MD Unavailable [phone] Allergies Active Allergy Reactions Criticality Noted Date [...] UKY-Zoster Vaccines (2 of 3) 08/05/2016 06/10/2016 [id number] Vaccine (3 - season) 2024 04/23/2021, 09/06/2020 [...] age to complete this topic Insurance MEDICARE [facility] Care Teams Punchboard Stuffer Relationship Specialty Start Date End Date Ary Pratt MD [address] [place] [address] PCP - General 09/07/20 Swapnil Garcia MD [address] [facility] [address] [place] [address] Surgeon Neurosurgery 05/22/22
--- OUTSIDE RECORDS SUMMARY | 2025-01-11 12:17 | XMS_ITS | Encounter Summary ---
Author Organization [employer] ([place], [place], [place], [place]) Address [address] [place] [address] Care Team Providers Care Cnc Operator Machinist Name Role Phone Sonia Barlow DO Primary Care Provider [phone] Reason for Visit * Reason Comments Medication Refill Encounter Details Date Type Department Care Team (Late st Contact Info) Description 08/29/2023 Refill [facility] Rheumatology [address] [place] [address] Valerie Bernard MD 101 [facility] [address] [place] [address] Fibromyalgia Social History Tobacco Use Types Packs/Day [...] Date Castro rded Speak language other than Pashto at home Not on file 05/09/2023 Want [...] myositis documented in this encounter Care Teams Cnc Operator Machinist Relationship Specialty Start Date End Date Sonia Barlow, 8 [facility] [address] [place] [address] PCP - General Family Medicine 03/11/22 documented as of this encounter
--- OUTSIDE RECORDS SUMMARY | 2025-01-11 12:17 | XMS_ITS | Encounter Summary ---
Author Organization [employer] ([place], [place], [place], [place]) Address [address] [place] [address] Care Team Providers Care Shift Manager Name Role Phone Sonia Barlow DO Primary Care Provider [phone] Reason for Visit * Reason Comments Medication Refill Encounter Details Date Type Department Care Team (Late st Contact Info) Description 06/27/2023 Refill [facility] Rheumatology [address] [place] [address] Valerie Bernard MD 101 [facility] [address] [place] [address] Osteoarthritis of both knees, unspecified osteoarthritis type; [...] Date Castro rded Speak language other than Turkish at home Not on file 05/09/2023 Want [...] type documented in this encounter Care Teams Shift Manager Relationship Specialty Start Date End Date Sonia Barlow DO [address] [place] [address] PCP - General Family Medicine 03/11/22 documented as of this encounter
--- OUTSIDE RECORDS SUMMARY | 2025-01-11 12:17 | XMS_ITS | Encounter Summary ---
Author Organization [facility] Address [address] [place] [address] Care Team Providers Care Hole Filler Name Role Phone Ary Pratt MD Primary Care Provider [phone] Swapnil Garcia MD Unavailable [phone] Encounter Details Date Type Department Care Team (Late st Contact Info) Description 03/24/2022 [facility] [address] [place] [address] Katelin Whitten, SAS ANALYST [address] [place] [address] Benign neoplasm of meninges (CMS/HCC) (Primary Dx) [...] meninges documented in this encounter Care Teams Hole Filler Relationship Specialty Start Date End Date Ary Pratt MD [address] [place] [address] PCP - General 09/07/20 Swapnil Garcia MD [address] [place] [address] Surgeon Neurosurgery 05/22/22 documented as of this encounter
--- OUTSIDE RECORDS SUMMARY | 2025-01-11 12:17 | XMS_ITS | Encounter Summary ---
Author Organization [employer] ([place], [place], [place], [place]) Address [address] [place] [address] Care Team Providers Care Senior Boiler Operator Name Role Phone Sonia Barlow DO Primary Care Provider Reason for Visit * Reason Comments Medication Refill Encounter Details Date Type Department Care Team (Late st Contact Info) Description 04/02/2023 Refill [facility] Rheumatology [address] [facility] [address] [place] [address] Valerie Bernard MD 101 [facility] [address] [place] [address] Osteoarthritis of both knees, unspecified osteoarthritis type; [...] type documented in this encounter Care Teams Senior Boiler Operator Relationship Specialty Start Date End Date Sonia Barlow DO 8 [facility] [address] [place] [address] PCP - General Family Medicine 03/11/22 documented as of this encounter
--- OUTSIDE RECORDS SUMMARY | 2025-01-11 12:17 | XMS_ITS | Encounter Summary ---
Author Organization [facility] Address [address] [place] [address] Care Team Providers Care Patternmaker Apprentice Wood Name Role Phone Sonia Barlow Primary Care Provider [phone] Reason for Visit * Reason Comments Med Refill Encounter Details Date Type Department Care Team (Late st Contact Info) Description 11/07/2023 Refill [facility] CARDIOLOGY [address] [address] Tierra Hurtado, SPORTS COORDINATOR [address] [place] [address] Med Refill Social History Tobacco Use Types [...] Description 02/20/2025 1:30 PM EDT Ancillary Procedure [facility] CARDIOLOGY [address] [address] 02/20/2025 2:15 PM EDT Office Visit [facility] CARDIOLOGY [address] [address] [address] Romero MD [address] [address] documented as of this encounter Visit Diagnoses Not on filedocumented in this encounter Care Teams Patternmaker Apprentice Wood Relationship Specialty Start Date End Date Sonia Barlow DO [facility] [place] [address] PCP - General Family Medicine 05/08/23 documented as of this encounter
--- OUTSIDE RECORDS SUMMARY | 2025-01-11 12:17 | XMS_ITS | Encounter Summary ---
Author Organization [employer] ([place], [place], [place], [place]) Address [address] [place] [address] Care Team Providers Care Pyrotechnics Press Tender Name Role Phone Sonia Barlow DO Primary Care Provider [phone] Reason for Visit * Reason Comments Medication Refill Encounter Details Date Type Department Care Team (Late st Contact Info) Description 08/22/2023 Refill [facility] Rheumatology [address] [place] [address] Valerie Bernard MD [address] [facility] [address] [place] [address] Fibromyalgia Social History Tobacco Use Types Packs/Day [...] myositis documented in this encounter Care Teams Pyrotechnics Press Tender Relationship Specialty Start Date End Date Sonia Barlow, 8 [facility] [address] [place] [address] PCP - General Family Medicine 03/11/22 documented as of this encounter
--- OUTSIDE RECORDS SUMMARY | 2025-01-11 12:17 | XMS_ITS | Encounter Summary ---
Author Organization [facility] Address [address] [place] [address] Care Team Providers Care Director Of Marketing And Promotions Name Role Phone Ary Pratt MD Primary Care Provider [phone] Swapnil Garcia MD Unavailable [phone] Reason for Referral * Consultation (Routine) - Closed Specialty Diagnoses / Procedures Referred By Contac t Referred To Contact Neurosurgery Diagnoses Benign meningioma (CMS/HCC) Katelin Whitten APRN [address] [place] [address] Phone: tel: fax: Referral ID Status Reason Start Date Expiration Date V isits Requested Visits Authorized [id number] Closed Specialty Services Required 05/05/2022 11/04/2023 1 1 Encounter Details Date Type Department Care Team (Late st Contact Info) Description 05/05/2022 Community [facility] Community Practice [address] [place] [address] Katelin Whitten APRN [address] [place] [address] Benign meningioma (CMS/HCC) (Primary Dx) [...] meninges documented in this encounter Care Teams Director Of Marketing And Promotions Relationship Specialty Start Date End Date Ary Pratt MD [address] [place] [address] PCP - General 09/07/20 Swapnil Garcia MD [address] [facility] [address] [place] [address] Surgeon Neurosurgery 05/22/22 documented as of this encounter
--- OUTSIDE RECORDS SUMMARY | 2025-01-11 12:17 | XMS_ITS | Clinical Summary ---
Author Organization [facility] Address [address] [place] [address] Care Team Providers Care Preservationist Name Role Phone Sonia Barlowgh Primary Care Provider [phone] Allergies Active Allergy Reactions Criticality Noted Date [...] Description 02/20/2025 1:30 PM EDT Ancillary Procedure [facility] CARDIOLOGY [address] [address] 02/20/2025 2:15 PM EDT Office Visit [facility] CARDIOLOGY [address] [address] [...] Hemoglobin A1C 6.2(H) 4.00 - 6.00 % [facility] Comment: DF by IF @ 10/30/2014 14:52 The [place] [employer] recommends maintenance of Hemoglobin A1C at 7.0% or lower. Goals for Hemoglobin A1C reduction may need to be modified if hypoglycemia is a problem. Mean Bld Glu Estim. 126 mg/dL [facility] Blood specimen (specimen) 10/30/2014 2:00 PM EDT Narrative [facility] - 10/30/2014 2:52 PM EDT Specimen Type: Blood Swapnil Jorge Jr., MD LAB BLOOD ORDERABLE S Final Result [facility] [address] [place] [address], [place] [phone] from Last 3 Months or Most Recently Relevant to Health Maintenance Insurance MEDICARE A & B Member Subscriber Plan / Payer (Ef fective 2016-Present) Name:Staci Beauchamp Member ID:[id number] Relation to Subscriber:Self Name:Staci Beauchamp Subscriber ID:[id number] Payer ID:[id number] Group ID:Not on file Type:Not on file Address: [facility] [id number] Care Teams Preservationist Relationship Specialty Start Date End Date Sonia Barlow DO [address] [place] [address] PCP - General Family Medicine 05/08/23
--- OUTSIDE RECORDS SUMMARY | 2025-01-11 12:17 | XMS_ITS | Encounter Summary ---
Author Organization [employer] ([place], [place], [place], [place]) Address [address] [place] [address] Care Team Providers Care Labor Relations Representative Name Role Phone Sonia Barlow DO Primary Care Provider [phone] Reason for Visit * Reason Comments Medication Refill Encounter Details Date Type Department Care Team (Late st Contact Info) Description 12/31/2022 Refill [facility] Rheumatology [address] [place] [address] Valerie Bernard MD 101 [facility] [address] [place] [address] Fibromyalgia Social History Tobacco Use Types Packs/Day [...] myositis documented in this encounter Care Teams Labor Relations Representative Relationship Specialty Start Date End Date Sonia Barlow DO 8 [facility] [address] [place] [address] PCP - General Family Medicine 03/11/22 documented as of this encounter
--- OUTSIDE RECORDS SUMMARY | 2025-01-11 12:17 | XMS_ITS | Referral Summary ---
Author Organization [employer] ([place], [place], [place], [place]) Address [address] [place] [address] Care Team Providers Care Paper Box Cutter Name Role Phone Sonia Barlow DO Primary Care Provider [phone] Allergies No known active allergies Medications carvediloL [...] total) by mouth daily. Active B comp kd5-yhmmj-L-biotin -zinc 1-60-300-12.5 hd-wn-dyz-mg Tab Take 1 tablet by mouth daily. [...] Date Castro rded Speak language other than Swedish at home Not on file 05/09/2023 Want [...] Insurance MEDICARE PART A B Care Teams Paper Box Cutter Relationship Specialty Start Date End Date Sonia Barlow, [address] [place] [address] PCP - General Family Medicine 03/11/22
--- OUTSIDE RECORDS SUMMARY | 2025-01-11 12:17 | XMS_ITS | Clinical Summary ---
Author Organization [employer] ([place], [place], [place], [place]) Address [address] [place] [address] Care Team Providers Care Hand Stapler Name Role Phone Sonia Barlow DO Primary Care Provider [phone] Allergies No known active allergies Medications carvediloL [...] total) by mouth daily. Active B comp wz5-dxrol-B-biotin -zinc 1-60-300-12.5 wv-xk-efm-mg Tab Take 1 tablet by mouth daily. [...] Date Castro rded Speak language other than Indian at home Not on file 05/09/2023 Want [...] Insurance MEDICARE PART A B Care Teams Hand Stapler Relationship Specialty Start Date End Date Sonia Barlow, DO [address] [place] [address] PCP - General Family Medicine 03/11/22
--- NOTE | 2025-01-11 12:32 | PC.NURSE ---
I spoke with Nico in radiology. He is going to push the pts MRI through as a STAT read.
--- NOTE | 2025-01-11 12:40 | PC.NURSE ---
1230- MD at bedside
[2025-01-11 12:44] LABS: Hematocrit 38.6 % (37.0-47.0); Hemoglobin 12.6 g/dL (12.2-16.2); Immature Granulocytes % 0.2 %; Mean Corpuscular HGB Conc 32.6 g/dL (31.8-35.4); Mean Corpuscular Hemoglobin 28.7 pg (27.0-31.2); Mean Corpuscular Volume 87.9 fl (81-99); Nucleated Red Blood Cells % 0 %; Platelet Count 164 K/mm3 (142-424); Red Blood Count 4.39 M/mm3 (4.20-5.40); Red Cell Distribution Width-SD 43.1 fL; White Blood Count 4.5 K/mm3 (4.8-10.8)
[2025-01-11 12:53] LABS: Alanine Aminotransferase 15 U/L (12-78); Albumin Level 3.9 g/dl (3.5-5.0); Albumin/Globulin Ratio 1.4 (1.1-1.8); Alkaline Phosphatase 74 U/L (38-126); Anion Gap 9.8 mEq/L (5-15); Aspartate Amino Transferase 24 U/L (14-36); Bilirubin,Total 0.5 mg/dl (0.2-1.3); Blood Urea Nitrogen 11 mg/dl (7-17); Calcium 8.9 mg/dl (8.4-10.2); Carbon Dioxide 28 mmol/L (22.0-30.0); Chloride 106 mmol/L (98-107); Creatinine Clearance Estimated 80 mL/min (50-200); Creatinine,Serum 0.90 mg/dl (0.52-1.04); Estimated Glomerular Filt Rate 62 ml/min (>60); GFR (African American) 75 ML/MIN (>60); Globulin 2.7 g/dL (1.3-3.2); Glucose 126 mg/dl (74-100); Potassium 3.8 mmoL/L (3.5-5.1); Sodium 140 mmol/L (136-145); Total Protein,Serum 6.6 g/dl (6.3-8.2)
--- NOTE | 2025-01-11 13:16 | PC.NURSE ---
I called Rigoberto in radiology. He is going to power share the pts images to [facility] and make a disk.
--- NOTE | 2025-01-11 13:20 | PC.NURSE ---
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 state they will call back when MD is available
--- NOTE | 2025-01-11 13:29 | PC.NURSE ---
is speaking with transfer center.
--- NOTE | 2025-01-11 13:40 | HMH.EDGENADL ---
Discharge Plan Disposition Chief Complaint: Neuro Symptoms/Deficit Prescriptions Prescriptions: No Action topiramate 100 mg tablet 200 mg PO HS Qty: 60 11RF buspirone 7.5 mg tablet 7.5 mg PO BID MDD 15 mg Qty: 10 0RF Rx Instructions: 7.5 mg, (1 tablet) on-call for MRI. May repeat after 2 hours if recurrent anxiety. Do not drive after taking this medication. gabapentin 400 mg capsule 400 mg PO BID Patient Comments: TAKE 1 CAPSULE BY MOUTH TWICE DAILY duloxetine 30 mg capsule,delayed release(DR/EC) 30 mg PO DAILY Patient Comments: TAKE 1 CAPSULE BY MOUTH EVERY DAY aspirin 81 mg tablet,delayed release (DR/EC) 81 mg PO DAILY docusate sodium 100 mg capsule 100 mg PO DAILY meloxicam 7.5 mg tablet 7.5 mg PO DAILY Patient Comments: TAKE 1 TABLET BY MOUTH DAILY NEEDED losartan 25 mg tablet 25 mg PO DAILY Patient Comments: TAKE 1 TABLET BY MOUTH EVERY DAY furosemide 20 mg tablet 20 mg PO DAILY Patient Comments: TAKE 1 TABLET BY MOUTH EVERY DAY potassium citrate 99 mg capsule 99 mg PO .COMPLEX Rx Instructions: 99 mg orally daily; spironolactone 25 mg tablet 12.5 mg PO .COMPLEX Rx Instructions: 12.5 mg orally m,w,f; mecobalamin (vitamin B12) 1,000 mcg tablet,chewable 1,000 mcg PO DAILY cholecalciferol (vitamin D3) 125 mcg (5,000 unit) capsule 125 mcg PO DAILY carvedilol 12.5 mg tablet 12.5 mg PO BID Qty: 60 5RF Linzess 145 mcg capsule 145 mcg PO DAILY omega 5-dwh-mvh-fish oil [Fish Oil] 300-1,000 mg capsule 1 cap PO DAILY dicyclomine 20 mg tablet 20 mg PO QID PRN (Reason: abdominal pain) Qty: 30 0RF Referrals Follow up/Referrals: Sonia Barlow [Primary Care Provider, Medical] - See instructions Stand Alone Forms Stand Alone Forms: Transfer Record - ED Print Language Print Language: Prydeinig Discharge ED Provider: Oksana Meredith Adult S[facility] General Chief complaint: Neuro Symptoms/Deficit Stated complaint: back pain Time Seen by Provider: 01/11/25 12:05 Mode of Arrival: Wheelchair Source of Information: Patient and Spouse Description of Symptoms (Recalled from ER Triage Doc. by RN): PT arrived to the ED following an MRI. Pt c/o numbess in legs when ambulating and at rest. History of Present Illness HPI narrative: This is a 69-year-old female with past medical history of cardiomyopathy, sleep apnea, obesity, hypertension, and previous history of intracranial meningioma who presents to the emergency department sent from MRI for abnormal MRI results. There are no formal MRI reads available at the time of her presentation to the emergency department. She had this MRI ordered by her neurologist for 6 weeks of worsening vague abdominal discomfort subjective paresthesias from the abdomen down, and lower extremity weakness. The patient is still ambulatory. She denies any saddle anesthesia, bowel, or bladder incontinence. She denies any recent fevers or recent spinal injections. No previous spinal surgeries. She denies any headache, vision changes, or neck pain. Related Data Home Medications ?Medication ?Instructions ?Recorded ?Confirmed aspirin 81 mg tablet,delayed 81 mg PO DAILY 03/13/22 01/10/25 release cholecalciferol (vitamin D3) 125 125 mcg PO DAILY 03/13/22 01/10/25 mcg (5,000 unit) capsule docusate sodium 100 mg capsule 100 mg PO DAILY 03/13/22 01/10/25 duloxetine 30 mg capsule,delayed 30 mg PO DAILY 03/13/22 01/10/25 release furosemide 20 mg tablet 20 mg PO DAILY 03/13/22 01/10/25 gabapentin 400 mg capsule 400 mg PO BID 03/13/22 01/10/25 losartan 25 mg tablet 25 mg PO DAILY 03/13/22 01/10/25 mecobalamin (vitamin B12) 1,000 1,000 mcg PO DAILY 03/13/22 01/10/25 mcg chewable tablet meloxicam 7.5 mg tablet 7.5 mg PO DAILY 03/13/22 01/10/25 potassium citrate 99 mg capsule 99 mg PO .COMPLEX 03/13/22 01/10/25 spironolactone 25 mg tablet 12.5 mg PO .COMPLEX 03/13/22 01/10/25 linaclotide 145 mcg capsule 145 mcg PO DAILY 12/10/22 01/10/25 (Linzess) omega 0-ggf-ubi-fish oil 300 1 cap PO DAILY 12/10/22 01/10/25 mg-1,000 mg capsule (Fish Oil) Previous Rx's ?Medication ?Instructions ?Recorded carvedilol 12.5 mg tablet 12.5 mg PO BID propranolol intol, 06/11/22 no tremor improvement #60 tabs topiramate 100 mg tablet 200 mg (2 x 100 mg) PO HS Tremor 03/15/24 #60 tabs dicyclomine 20 mg tablet 20 mg PO QID PRN abdominal pain 12/06/24 #30 tabs buspirone 7.5 mg tablet 7.5 mg PO BID anxiety #10 tabs 01/10/25 Allergies Allergy/AdvReac Type Severity Reaction Status Date / Time No Known Drug Allergies Allergy Verified 01/09/25 16:28 [facility] Disclaimer: The information contained in this section may have been updated after the patient was seen, as this information can be updated by other users. Medical History (Updated 01/10/25 @ 10:22 by Lou Kraft) Spinal cord compression Transverse myelitis Neuropathy Myelopathy in diseases classified elsewhere KAMLA on CPAP Tremor Surgical History History of nasal septoplasty History of colonoscopy History of total hysterectomy History of cholecystectomy Family History Other Cancer Coronary artery disease Diabetes Heart attack Social History Smoking Status: Never smoker alcohol intake: current alcohol intake frequency: holidays/special occasions only substance use type: denies use current occupational status: retired Travel in the last 8 weeks?: None household members: spouse housing: house marital status: Have you lived/traveled outside [place] in past 30 days?: No Contact w/someone who lives/traveled outside [place] past 30 days?: No Exposure to someone with infectious disease in past 14 days?: No Do you have a fever (greater than 100.4 F or 38 C)?: No Have you tested positive for COVID-19?: No Exposed to someone with COVID-19 in past 14 days?: No Do you have a sore throat?: No Do you have a cough?: No Do you have any weakness?: No Do you have any diarrhea?: No Are you experiencing any unusual bleeding?: No Do you have any muscle aches/pain?: No Do you have any abdominal pain?: No Are you experiencing loss of taste or smell?: No Other Medical History Have you received the Pneumonia Vaccine: Yes ROS Obtained: Yes All systems reviewed & no additional complaints except as documented Physical Exam General General appearance: alert and in no apparent distress Head Head exam: atraumatic and normocephalic Eye Eye exam: Present normal appearance, PERRL and EOMI ENT ENT exam: Present mucous membranes moist Neck Neck exam: Present normal inspection and full ROM; Absent tenderness Chest Chest inspection: Present symmetric chest wall rise; Absent tenderness Respiratory Respiratory exam: Absent respiratory distress, wheezes or accessory muscle use Cardiovascular Cardiovascular exam: Present regular rate and normal rhythm Abdominal Exam Abdominal exam: Present soft; Absent tenderness or guarding Extremities Exam Extremities exam: Present full ROM; Absent tenderness Neurological Exam Neurological exam: Present alert, oriented X3, CN II-XII intact, normal gait and other (There is subjective loss of sensation from approximately T6-T7 dermatome and down. Lower extremity strength is 4 out of 5 bilaterally. No clonus. Negative Irma sign.) Psychiatric Psychiatric exam: Present normal affect Skin Skin exam: Present warm and dry Medical Decision Making Medical Records Screening: Per USPSTF and CDC recommendations, given the prevalence of disease in our region, it is our hospital?s policy to screen for HIV and viral Hepatitis for all patients aged 18 and over and those with ongoing risk factors. Juan Carlos Inquiry Pt receiving controlled substance: No Juan Carlos was queried for this patient: No Vital Signs: 01/11/25 12:00 Temperature 97.8 F Temperature Source Temporal Artery Scan Pulse Rate [Right Radial] 61 Respiratory Rate 18 Blood Pressure [Right Arm] 114/63 Blood Pressure Mean [Right Arm] 80 Blood Pressure Source [Right Arm] Automatic Cuff Blood Pressure Position [Right Arm] Sitting 02 Sat by Pulse Oximetry 97 Oxygen Delivery Method Room Air Lab Data Lab results reviewed: Yes I reviewed the patient's lab results. Lab Results 01/11/25 12:37: WBC 4.5 L, RBC 4.39, Hgb 12.6, Hct 38.6, MCV 87.9, MCH 28.7, MCHC 32.6, RDW 13.3, Plt Count 164, MPV 10.7 H, Neut % (Auto) 66.4, Lymph % (Auto) 20.2, [place] % (Auto) 9.4 H, Eos % (Auto) 3.4, Baso % (Auto) 0.4, Neut # (Auto) 3.0, Lymph # (Auto) 0.9, [place] # (Auto) 0.4, Eos # (Auto) 0.2, Baso # (Auto) 0.0, Sodium 140, Potassium 3.8, Chloride 106, Carbon Dioxide 28, Anion Gap 9.8, BUN 11, Creatinine 0.90, Estimated Creat Clear 80, Estimated GFR 62, Est GFR ( Amer) 75, Glucose 126 H, Calcium 8.9, Total Bilirubin 0.5, AST 24, ALT 15, Alkaline Phosphatase 74, Total Protein 6.6, Albumin 3.9, Globulin 2.7, Albumin/Globulin Ratio 1.4 01/11/25 12:37 01/11/25 12:37 Orders (Tests/Meds): ORDERS Category Date Time Status CBC w/Auto Diff [Complete Blood Count Auto Diff] Stat Lab 01/11/25 12:37 Completed CMP [Comprehensive Metabolic Panel] Stat Lab 01/11/25 12:37 Completed Medical Decision Narrative: 69-year-old female with history of previous intracranial meningioma who presents emergency department sent from MRI for abnormal results concerning for spinal cord tumor. Differential includes but is not limited to: Cord compression, spinal cord tumor, metastasis, myelopathy, transverse myelitis On my initial assessment, the patient is hemodynamically stable in no acute distress. Her neurologic exam is notable for subjective sensory change from approximately T6 level down. She is still ambulatory without any incontinence. I reviewed thoracic MRI images which are concerning for a spinal tumor at T4 level. Stat radiology read requested. CBC shows mildly decreased white blood cell count. CMP with no acute findings. 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 Spoke with transfer center requesting transfer for spine consult. Accepted by Dr. Mendieta to ED. Patient will be transferred POV. Critical Care Critical Care Time Critical Care Time: No
--- NOTE | 2025-01-11 13:54 | PC.NURSE ---
report called to [facility] ED at 1350. report given to Dar SANCHEZ
--- NOTE | 2025-01-11 13:57 | PC.NURSE ---
report called to stephen at [facility]
[2025-01-11 14:07] VITALS: BP 166/92; PULSE 57; RESP 20; TEMP 36.8; O2SAT 96
== END 2025-01-11 14:08 | disposition short-term general hospital (02) ==
PROVIDERS: Emergency Provider Student in an Organized Health Care Education/Training Program; PCP Family Medicine
DX: G95.29 Other cord compression (principal); G95.89 Other specified diseases of spinal cord
CPT/HCPCS: 80053; 85025; 99284; 99285

== ENCOUNTER 2025-02-23 13:00 | Outpatient (RCR) | payer MEDICARE, OTHER, SELFPAY | END 2025-02-23 23:59 | disposition home or self-care (01) | LOC: PT.CARL 13:00 | PROVIDERS: PCP Family Medicine; Visit Provider Nurse Practitioner Family | DX: D32.9 Benign neoplasm of meninges, unspecified (principal); M89.8X8 Other specified disorders of bone, other site; Z98.890 Other specified postprocedural states | CPT/HCPCS: 97110; 97162; 97530 ==

== ENCOUNTER 2025-03-13 13:00 | Outpatient (RCR) | payer MEDICARE, OTHER, SELFPAY | END 2025-03-14 09:55 | disposition home or self-care (01) | LOC: PT.CARL 13:00 | PROVIDERS: PCP Family Medicine; Visit Provider Nurse Practitioner Family | DX: D32.9 Benign neoplasm of meninges, unspecified (principal); M89.8X8 Other specified disorders of bone, other site; Z98.890 Other specified postprocedural states | CPT/HCPCS: 97110; 97530 ==